=== PATIENT | female | born 1960 | race Caucasian/White ===

== ENCOUNTER 2016-08-22 14:48 | Emergency (ER) | payer MEDICARE ==
--- NOTE | 2016-08-22 15:24 | CT ---
EXAM DESCRIPTION: Head CLINICAL HISTORY: 55 years Female, CVA symptoms COMPARISON: None. TECHNIQUE: Volumetric noncontrasted CT of the head was performed. FINDINGS: The gloria matter and white matter are unremarkable on today's study. No abnormal extra-axial fluid. The ventricles are midline and unremarkable. Basilar cisterns are preserved. No mass, mass effect or shift. The orbits and globes are unremarkable. There is near complete opacification of the left maxillary sinus. Calvarium is intact. IMPRESSION: The intracranial structures are unremarkable no CT evidence of chronic or acute stroke. Chronic left maxillary sinusitis. Electronically signed by: Babak Landers MD 08/22/2016 3:23 PM [employer]
--- NOTE | 2016-08-22 15:28 | RAD ---
EXAM DESCRIPTION: Chest,2 Views CLINICAL HISTORY: 55 yearsFemale, chest pain, no cough COMPARISON: None. IMPRESSION: Mild cardiomegaly. No evidence of volume overload. There is no airspace consolidation, pleural effusion, or pneumothorax. No acute osseous abnormality. Electronically signed by: Babak Landers MD 08/22/2016 3:27 PM [employer]
--- NOTE | 2016-08-22 15:58 | ED.PDOC ---
History of Present Illness - General Chief Complaint: Cardiovascular Problem Stated Complaint: chest pain, confusion Time Seen by Provider: 08/22/16 15:42 Source: patient, RN notes reviewed, EMS Exam Limitations: no limitations - History of Present Illness Initial Comments: Ms.Helen Vega 55 y/o female with history of cad s/p one cardiac stent,pe/dvt, Sweets disease, lymphoma,chronic pain pain syndrome,cva, brought by ems with chest pain and confusion.She stated that she had intermittent chest pain stabbing lasting for few minutes but an hour ago her symptoms worsen she became diaphoretic,pain radiating to her jaw had 2 episodes of nausea/vomiting,became confused doesnt know where she was called up and he clled ems to shredder picker at her house.She stated that she had an mi in August 2015 in [place], [place] had one cardiac stent placed upon discharge passed out was diagnosed with pe and bilateral leg dvt and was placed on Xarelto and Plavix.She was also mechanically ventilated for 4 days.Took 4 NTG before coming here. Timing/Duration: other - 2 days Improving Factors: nothing Worsening Factors: nothing Associated Symptoms: chest pain, weakness - left side Allergies/Adverse Reactions: Allergies Aspirin Allergy (Verified 08/22/16 14:57) Codeine Allergy (Verified 08/22/16 15:11) Droperidol [From Inapsine] Allergy (Verified 08/22/16 15:11) Ketorolac Tromethamine [From Toradol] Allergy (Verified 08/22/16 15:11) Morphine Allergy (Verified 08/22/16 15:11) Home Medications: Ambulatory Orders ALPRAZolam [Xanax] 0.5 mg PO TID 08/22/16 Atorvastatin Calcium [Lipitor] 40 mg PO DAILY 08/22/16 Carvedilol 6.25 mg PO BID 08/22/16 Clopidogrel Bisulfate 75 mg PO DAILY 08/22/16 Cyclobenzaprine HCl 5 mg PO BID PRN 08/22/16 Fluoxetine HCl 20 mg PO DAILY 08/22/16 Levothyroxine Sodium [Synthroid] 112 mcg PO DAILY 08/22/16 Nitroglycerin [Nitrostat] 1 ea SL Q5MIN PRN 08/22/16 Oxycodone W/ Acetaminophen [Percocet 10-325 mg] 1 tab PO Q6H PRN 08/22/16 Pantoprazole Sodium 40 mg PO DAILY 08/22/16 Promethazine HCl 12.5 mg PO Q8H PRN 08/22/16 Rivaroxaban [Xarelto] 20 mg PO DAILY 08/22/16 Sucralfate 1 gm PO TID 08/22/16 Trazodone HCl 50 mg PO BEDTIME 08/22/16 Review of Systems - Review of Systems Constitutional: States: see HPI EENTM: States: no symptoms reported Respiratory: States: no symptoms reported Cardiology: States: no symptoms reported Gastrointestinal/Abdominal: States: no symptoms reported Genitourinary: States: no symptoms reported Musculoskeletal: States: other - chronic pain syndrome Skin: States: no symptoms reported Neurological: States: see HPI Endocrine: States: no symptoms reported Hematologic/Lymphatic: States: no symptoms reported Past Medical History (General) - Patient Medical History Hx Stroke: Yes Hx Cardiac Disorders: Yes - CAD Hx Thyroid Disease: Yes Hx Other PMH: Yes - lymphoma Hx Other - free text: Had 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 for 2 years in [place], [place] Surgical History: appendectomy, cholecystectomy, other - Hysterectomy,cardiac cath - Social History Hx Tobacco Use: No Hx Alcohol Use: No - Activities of Daily Living Patient Lives Alone: No - Grooming Ability: Independent Eating (Feeding) Ability: Independent Toileting Ability: Independent Family Medical History - Family History Sister Hx Family Stroke: Yes - mom Hx Cardiac Disease: Yes - parents Hx Family;Other: SWEETS Disease -sister Mother Family History: No Known Living Status: Still Living Hx Family Hypertension: Yes Hx Family Cancer: Yes - ovarian Physical Exam - Physical Exam General Appearance: Alert, Anxious, No apparent distress Eye Exam: bilateral normal Ears, Nose, Throat: hearing grossly normal, normal ENT inspection, normal pharynx Neck: non-tender, full range of motion, supple, normal inspection Respiratory: chest non-tender, lungs clear, normal breath sounds, no respiratory distress Cardiovascular/Chest: normal peripheral pulses, regular rate, rhythm, no edema, no gallop, no JVD, no murmur Peripheral Pulses: radial,right: 2+, radial,left: 2+ Gastrointestinal/Abdominal: normal bowel sounds, non tender, soft, no organomegaly, no pulsatile mass Back Exam: normal inspection, no CVA tenderness, no vertebral tenderness, CVA tenderness (R) Extremity: non-tender, normal inspection, no calf tenderness Neurologic: alert, normal mood/affect, oriented x 3, motor weakness - left side Skin Exam: normal color, warm/dry, cyanosis Lymphatic: no adenopathy Progress - Results/Orders Results/Orders: 08/22/16 16:01 Telemetry .ONCE Pulse Oximetry Assessment DAILY 08/22/16 16:06 URINE DRUG SCREEN, 7 ASSAY Stat URINALYSIS Stat Laboratory Results WBC 6.9 K/mm3 (4.8-10.8) 08/22/16 16:15 RBC 4.15 M/mm3 (4.20-5.40) L 08/22/16 16:15 Hgb 11.5 gm/dL (12.0-16.0) L 08/22/16 16:15 Hct 35.0 % (36.0-47.0) L 08/22/16 16:15 MCV 84.3 fl (81.0-99.0) 08/22/16 16:15 MCH 27.7 pg (27.0-31.0) 08/22/16 16:15 MCHC 32.9 g/dL (33.0-37.0) L 08/22/16 16:15 RDW 14.5 % (11.5-14.5) 08/22/16 16:15 Plt Count 296 K/mm3 (130-400) 08/22/16 16:15 MPV 6.9 fl (7.40-10.4) L 08/22/16 16:15 Absolute Neuts (auto) 3.50 K/uL (1.8-6.8) 08/22/16 16:15 Absolute Lymphs (auto) 2.30 K/uL (1.0-3.4) 08/22/16 16:15 Absolute Monos (auto) 0.90 K/uL (0.2-0.8) H 08/22/16 16:15 Absolute Eos (auto) 0.20 K/uL (0.0-0.4) 08/22/16 16:15 Absolute Basos (auto) 0.10 K/uL (0.0-0.1) 08/22/16 16:15 Neutrophils % 49.7 % (42.0-78.0) 08/22/16 16:15 Lymphocytes % 33.5 % (20.0-50.0) 08/22/16 16:15 Monocytes % 12.6 % (2.0-9.0) H 08/22/16 16:15 Eosinophils % 3.3 % (1.0-5.0) 08/22/16 16:15 Basophils % 0.9 % (0.0-2.0) 08/22/16 16:15 PT 11.5 SECONDS (9.4-12.5) 08/22/16 16:15 INR 1.020 08/22/16 16:15 PTT (SP) 32.6 SECONDS (25.1-36.5) 08/22/16 16:15 D-Dimer, Quantitative < 200 ng/mL (0-230) 08/22/16 16:15 Sodium 142 mmol/L (135-145) 08/22/16 16:15 Potassium 3.9 mmol/L (3.6-5.0) 08/22/16 16:15 Chloride 104 mmol/L (101-111) 08/22/16 16:15 Carbon Dioxide 32 mmol/L (21-31) H 08/22/16 16:15 Anion Gap 9.9 (12-18) L 08/22/16 16:15 BUN 11 mg/dL (7-18) 08/22/16 16:15 Creatinine 0.86 mg/dL (0.6-1.3) 08/22/16 16:15 BUN/Creatinine Ratio 12.8 (10-20) 08/22/16 16:15 Random Glucose 111 mg/dL (70-105) H 08/22/16 16:15 Serum Osmolality 283.2 mOsm/L (275-295) 08/22/16 16:15 Calcium 8.9 mg/dL (8.4-10.2) 08/22/16 16:15 Magnesium 1.9 mg/dL (1.8-2.5) 08/22/16 16:15 Creatine Kinase 55 IU/L (26-140) 08/22/16 16:15 CK-MB (CK-2) 0.8 ng/mL (0.0-4.4) 08/22/16 16:15 CK-MB (CK-2) % Not Reportable 08/22/16 16:15 Troponin I < 0.02 ng/mL (0.01-0.05) 08/22/16 16:15 B-Natriuretic Peptide 72.7 pg/ml (0-100) 08/22/16 16:15 Departure - Departure Clinical Impression: Chest pain Qualifiers: Chest pain type: unspecified Qualifier Code: (R07.9) Chest pain, unspecified Transient ischemic attack (TIA) Qualifiers: Transient cerebral ischemia type: unspecified Qualifier Code: (G45.9) Transient cerebral ischemic attack, unspecified Time of Disposition: 17:05 - D/W Neurologist -[facility] Disposition: Transfer to Hospital Condition: Fair Departure Forms: ED Discharge - Pt. Copy, Patient Portal Self Enrollment Home Medications: Ambulatory Orders ALPRAZolam [Xanax] 0.5 mg PO TID 08/22/16 Atorvastatin Calcium [Lipitor] 40 mg PO DAILY 08/22/16 Carvedilol 6.25 mg PO BID 08/22/16 Clopidogrel Bisulfate 75 mg PO DAILY 08/22/16 Cyclobenzaprine HCl 5 mg PO BID PRN 08/22/16 Fluoxetine HCl 20 mg PO DAILY 08/22/16 Levothyroxine Sodium [Synthroid] 112 mcg PO DAILY 08/22/16 Nitroglycerin [Nitrostat] 1 ea SL Q5MIN PRN 08/22/16 Oxycodone W/ Acetaminophen [Percocet 10-325 mg] 1 tab PO Q6H PRN 08/22/16 Pantoprazole Sodium 40 mg PO DAILY 08/22/16 Promethazine HCl 12.5 mg PO Q8H PRN 08/22/16 Rivaroxaban [Xarelto] 20 mg PO DAILY 08/22/16 Sucralfate 1 gm PO TID 08/22/16 Trazodone HCl 50 mg PO BEDTIME 08/22/16
[2016-08-22 18:01] VITALS: BP 141/83; TEMP 98.2; O2SAT 96
== END 2016-08-22 17:50 | disposition short-term general hospital (02) ==
LOC: ER 14:48
DX: G45.9 Transient cerebral ischemic attack, unspecified (principal); R07.9 Chest pain, unspecified; I25.10 Atherosclerotic heart disease of native coronary artery without angina pectoris; E07.9 Disorder of thyroid, unspecified; Z85.72 Personal history of non-Hodgkin lymphomas; Z88.6 Allergy status to analgesic agent; Z88.8 Allergy status to other drugs, medicaments and biological substances; Z79.899 Other long term (current) drug therapy; Z79.02 Long term (current) use of antithrombotics/antiplatelets

== ENCOUNTER → 2016-12-02 | Outpatient (CLI) | payer MEDICARE | END | disposition home or self-care (01) | LOC: GMAB 19:39 | PROVIDERS: ATTEND Family Medicine | DX: D64.9 Anemia, unspecified (principal) ==

== ENCOUNTER 2017-02-15 21:00 | Emergency (ER) | payer MEDICARE ==
--- NOTE | 2017-02-15 21:15 | ED.PDOC ---
History of Present Illness - General Chief Complaint: General Stated Complaint: altered mental status Time Seen by Provider: 02/15/17 21:08 Source: patient, RN notes reviewed, Vital Signs reviewed, family Additional Information: Pt brought in by due to complaints of occasional altered mental status. Pt reports occasional chest pain and nausea x 1 day as well. Currently no apparent distress noted. - History of Present Illness Timing/Duration: 24 hours Severity: moderate Improving Factors: nothing Worsening Factors: movement Associated Symptoms: nausea/vomiting, weakness Allergies/Adverse Reactions: Allergies Aspirin Allergy (Verified 02/15/17 21:29) Codeine Allergy (Verified 02/15/17 21:29) Droperidol [From Inapsine] Allergy (Verified 02/15/17 21:29) Ketorolac Tromethamine [From Toradol] Allergy (Verified 02/15/17 21:29) Morphine Allergy (Verified 02/15/17 21:29) Ondansetron [From Zofran] Allergy (Verified 02/15/17 21:29) Home Medications: Ambulatory Orders ALPRAZolam [Xanax] 0.5 mg PO TID PRN 08/22/16 Atorvastatin Calcium [Lipitor] 40 mg PO DAILY 08/22/16 Carvedilol 12.5 mg PO BID 08/22/16 Clopidogrel Bisulfate 75 mg PO DAILY 08/22/16 Cyclobenzaprine HCl 5 mg PO BID PRN 08/22/16 Fluoxetine HCl 20 mg PO DAILY 08/22/16 Levothyroxine Sodium [Synthroid] 112 mcg PO DAILY 08/22/16 Nitroglycerin [Nitrostat] 1 ea SL Q5MIN PRN 08/22/16 Oxycodone W/ Acetaminophen [Percocet 10-325 mg] 1 tab PO Q6H PRN 08/22/16 Pantoprazole Sodium 40 mg PO DAILY 08/22/16 Promethazine HCl 12.5 mg PO Q6HRS PRN 08/22/16 Rivaroxaban [Xarelto] 20 mg PO DAILY 08/22/16 Trazodone HCl 50 mg PO BEDTIME 08/22/16 Apixaban [Eliquis] 5 mg PO BID 02/15/17 Dicyclomine HCl 20 mg PO QID PRN 02/15/17 Dimenhydrinate 50 mg PO PRN 02/15/17 Ferrous Sulfate 325 mg PO DAILY 02/15/17 Ranitidine HCl 300 mg PO BID 02/15/17 Review of Systems - Review of Systems Constitutional: States: no symptoms reported EENTM: States: no symptoms reported Respiratory: States: no symptoms reported Cardiology: States: no symptoms reported Gastrointestinal/Abdominal: States: no symptoms reported Genitourinary: States: no symptoms reported Musculoskeletal: States: no symptoms reported Skin: States: no symptoms reported Neurological: States: see HPI, anxiety, depressed, emotional problems Endocrine: States: no symptoms reported Hematologic/Lymphatic: States: no symptoms reported Past Medical History (General) - Patient Medical History Hx Stroke: Yes Hx Asthma: Yes Hx of COPD: Yes Hx Cardiac Disorders: Yes - CAD Hx Congestive Heart Failure: No Hx Hypertension: Yes Hx Thyroid Disease: Yes Hx Diabetes: No Hx Gastroesophageal Reflux: Yes - Vaccination History Hx Influenza Vaccination: No Hx Pneumococcal Vaccination: No - Social History Hx Tobacco Use: No Hx Alcohol Use: No Family Medical History - Family History Mother Family History: No Known Living Status: Still Living Hx Family Hypertension: Yes Hx Family Cancer: Yes - ovarian Sister Hx Family Stroke: Yes - mom Hx Cardiac Disease: Yes - parents Hx Family;Other: SWEETS Disease -sister Physical Exam - Physical Exam General Appearance: Alert, Comfortable, No apparent distress, Obese Eye Exam: bilateral normal Ears, Nose, Throat: hearing grossly normal, normal ENT inspection Neck: full range of motion, supple Respiratory: no respiratory distress, no accessory muscle use Cardiovascular/Chest: normal peripheral pulses, regular rate, rhythm Gastrointestinal/Abdominal: non tender, soft Back Exam: normal inspection Extremity: normal range of motion, non-tender Neurologic: gmat tutor II-XII nml as tested, no motor/sensory deficits, alert, normal mood/affect, oriented x 3 Skin Exam: normal color Lymphatic: no adenopathy Progress - Progress Progress: 02/15/17 23:40 Labs obtained as well as EKG - all WNL. Pt requested phenergan for nausea. She states that Zofran causes an allergic reaction. Pt reported feeling tired/ groggy after Phenergan. Pt was stable for discharge home. I re-iterated that her medications are potentially playing a role in her reported occasional altered mental status. - Results/Orders Results/Orders: 02/15/17 21:15 EKG STAT Laboratory Results - last 24 hr 02/15/17 02/15/17 02/15/17 21:20 21:20 21:35 WBC RBC Hgb Hct MCV MCH MCHC RDW Plt Count MPV Absolute Neuts (auto) Absolute Lymphs (auto) Absolute Monos (auto) Absolute Eos (auto) Absolute Basos (auto) Neutrophils % Lymphocytes % Monocytes % Eosinophils % Basophils % Sodium Potassium Chloride Carbon Dioxide Anion Gap BUN Creatinine BUN/Creatinine Ratio Random Glucose Serum Osmolality Calcium Ferritin Total Bilirubin AST ALT Alkaline Phosphatase Creatine Kinase CK-MB (CK-2) CK-MB (CK-2) % Troponin I Serum Total Protein Albumin Globulin Albumin/Globulin Ratio TSH 3.08 Urine Color Yellow Urine Appearance Clear Urine pH 5.5 Ur Specific [place] 1.020 Urine Protein Negative Urine Glucose (UA) Negative Urine Ketones Negative Urine Blood Moderate H Urine Nitrite Negative Urine Bilirubin Negative Urine Urobilinogen 0.2 Ur Leukocyte Esterase Trace H Urine RBC 1-3 Urine WBC 1-3 Ur Epithelial Cells 1-3 Urine Bacteria Rare Urine Opiates Screen Positive H Urine Barbiturates Negative Ur Phencyclidine Scrn Negative U Amphetamin/Meth Scrn Positive H U Benzodiazepines Scrn Positive H U Cocaine Metab Screen Negative U Cannabinoids Screen Negative Ethyl Alcohol 02/15/17 02/15/17 02/15/17 21:35 21:35 21:35 WBC 8.5 RBC 4.01 L Hgb 11.8 L Hct 35.8 L MCV 89.3 MCH 29.4 MCHC 33.0 RDW 13.8 Plt Count 289 MPV 7.0 L Absolute Neuts (auto) 4.40 Absolute Lymphs (auto) 2.50 Absolute Monos (auto) 1.10 H Absolute Eos (auto) 0.30 Absolute Basos (auto) 0.10 Neutrophils % 51.7 Lymphocytes % 30.0 Monocytes % 13.4 H Eosinophils % 4.1 Basophils % 0.8 Sodium 139 Potassium 4.2 Chloride 103 Carbon Dioxide 25 Anion Gap 15.2 BUN 6 L Creatinine 0.70 BUN/Creatinine Ratio 8.6 L Random Glucose 109 H Serum Osmolality 275.7 Calcium 9.1 Ferritin Total Bilirubin 0.4 AST 109 H ALT 97 H Alkaline Phosphatase 139 H Creatine Kinase CK-MB (CK-2) CK-MB (CK-2) % Troponin I Serum Total Protein 7.0 Albumin 3.8 Globulin 3.2 Albumin/Globulin Ratio 1.2 TSH Urine Color Urine Appearance Urine pH Ur Specific [place] Urine Protein Urine Glucose (UA) Urine Ketones Urine Blood Urine Nitrite Urine Bilirubin Urine Urobilinogen Ur Leukocyte Esterase Urine RBC Urine WBC Ur Epithelial Cells Urine Bacteria Urine Opiates Screen Urine Barbiturates Ur Phencyclidine Scrn U Amphetamin/Meth Scrn U Benzodiazepines Scrn U Cocaine Metab Screen U Cannabinoids Screen Ethyl Alcohol < 5.40 02/15/17 02/15/17 21:35 21:35 WBC RBC Hgb Hct MCV MCH MCHC RDW Plt Count MPV Absolute Neuts (auto) Absolute Lymphs (auto) Absolute Monos (auto) Absolute Eos (auto) Absolute Basos (auto) Neutrophils % Lymphocytes % Monocytes % Eosinophils % Basophils % Sodium Potassium Chloride Carbon Dioxide Anion Gap BUN Creatinine BUN/Creatinine Ratio Random Glucose Serum Osmolality Calcium Ferritin 42.8 Total Bilirubin AST ALT Alkaline Phosphatase Creatine Kinase 78 CK-MB (CK-2) 1.2 CK-MB (CK-2) % Not Reportable Troponin I < 0.02 Serum Total Protein Albumin Globulin Albumin/Globulin Ratio TSH Urine Color Urine Appearance Urine pH Ur Specific [place] Urine Protein Urine Glucose (UA) Urine Ketones Urine Blood Urine Nitrite Urine Bilirubin Urine Urobilinogen Ur Leukocyte Esterase Urine RBC Urine WBC Ur Epithelial Cells Urine Bacteria Urine Opiates Screen Urine Barbiturates Ur Phencyclidine Scrn U Amphetamin/Meth Scrn U Benzodiazepines Scrn U Cocaine Metab Screen U Cannabinoids Screen Ethyl Alcohol - EKG/XRAY/CT EKG: Sinus - 83 bpm, QTc = 465 msec, nonspecific inverted T wave in III; no evidence of STEMI. Departure - Departure Clinical Impression: Mental status alteration Qualifiers: Altered mental status type: somnolence Qualified Code(s): R40.0 - Somnolence Time of Disposition: 22:38 Disposition: Discharge to Home or Self Care Condition: Fair Departure Forms: ED Discharge - Pt. Copy, Patient Portal Self Enrollment Instructions: Aging Gracefully: Reducing the Risks of Polypharmacy Referrals: Markus Ziegler MD [Primary Care Provider] - 1-5 Days Home Medications: Ambulatory Orders ALPRAZolam [Xanax] 0.5 mg PO TID PRN 08/22/16 Atorvastatin Calcium [Lipitor] 40 mg PO DAILY 08/22/16 Carvedilol 12.5 mg PO BID 08/22/16 Clopidogrel Bisulfate 75 mg PO DAILY 08/22/16 Cyclobenzaprine HCl 5 mg PO BID PRN 08/22/16 Fluoxetine HCl 20 mg PO DAILY 08/22/16 Levothyroxine Sodium [Synthroid] 112 mcg PO DAILY 08/22/16 Nitroglycerin [Nitrostat] 1 ea SL Q5MIN PRN 08/22/16 Oxycodone W/ Acetaminophen [Percocet 10-325 mg] 1 tab PO Q6H PRN 08/22/16 Pantoprazole Sodium 40 mg PO DAILY 08/22/16 Promethazine HCl 12.5 mg PO Q6HRS PRN 08/22/16 Rivaroxaban [Xarelto] 20 mg PO DAILY 08/22/16 Trazodone HCl 50 mg PO BEDTIME 08/22/16 Apixaban [Eliquis] 5 mg PO BID 02/15/17 Dicyclomine HCl 20 mg PO QID PRN 02/15/17 Dimenhydrinate 50 mg PO PRN 02/15/17 Ferrous Sulfate 325 mg PO DAILY 02/15/17 Ranitidine HCl 300 mg PO BID 02/15/17 Additional Instructions: Use medications with caution and consider decreasing use of medications that cause drowsiness such as: Trazodone, Phenergan, Percocet, Flexeril, and Xanax. Return to ER if condition worsens.
[2017-02-15 21:30] VITALS: BP 126/92; TEMP 99.1; O2SAT 94
[2017-02-15] MEDS ORDERED: PROMETHAZINE HCL 25 MG TAB PO ONE (21:35)
== END 2017-02-15 22:43 | disposition home or self-care (01) ==
LOC: ER 21:00
DX: R40.0 Somnolence (principal); R11.0 Nausea; I10 Essential (primary) hypertension; E07.9 Disorder of thyroid, unspecified; K21.9 Gastro-esophageal reflux disease without esophagitis; Z79.899 Other long term (current) drug therapy; J44.9 Chronic obstructive pulmonary disease, unspecified; I25.10 Atherosclerotic heart disease of native coronary artery without angina pectoris; Z88.6 Allergy status to analgesic agent; Z88.8 Allergy status to other drugs, medicaments and biological substances
CPT/HCPCS: 36415; 80053; 80307; 80320; 81001; 82550; 82553; 82728; 84443; 84484; 85025; 93005; Q0169

== ENCOUNTER 2017-10-01 14:47 | Emergency (ER) | payer MEDICARE ==
--- NOTE | 2017-10-01 15:20 | ED.PDOC ---
History of Present Illness - General Chief Complaint: GI Problem Stated Complaint: blood in stool,vomiting blood Time Seen by Provider: 10/01/17 14:56 Information Source: patient, RN notes reviewed, Vital Signs reviewed Additional Information: 56 YEAR OLD WHITE FEMALE PRESENTS WITH VOMITING COFFEE GROUND MATERIAL AND ALSO DARK RED STOOLS ONSET 2 DAYS SHE HAS HISTORY OF CAD SP STENTS ATRIAL FIB WITH HISTORY OF ABLATION PE SP GREEN FIELD FILTER CVA ( 2 MONTHS AGO ) GI BLEED SECONDARY TO XARALTO IN THE PAST SHE IS ON PLAVIX AND ELIQUIS DENIES SYNCOPY DIZZINESS VS APPEAR STABLE AT THIS TIME - History of Present Illness Abdominal Pain Onset Location: epigastric Pain Radiation: no radiation Timing/Duration: days Improving Factors: nothing Worsening Factors: nothing Associated Symptoms: heartburn, weakness Review of Systems - Review of Systems Constitutional: States: weakness EENTM: States: no symptoms reported Respiratory: States: no symptoms reported Cardiology: States: no symptoms reported Gastrointestinal/Abdominal: States: see HPI Genitourinary: States: no symptoms reported Musculoskeletal: States: no symptoms reported Skin: States: no symptoms reported Neurological: States: no symptoms reported Endocrine: States: no symptoms reported Hematologic/Lymphatic: States: no symptoms reported Past Medical History (General) - Patient Medical History Hx Seizures: No Hx Stroke: Yes Hx Dementia: No Hx Asthma: Yes Hx of COPD: Yes Hx Cardiac Disorders: Yes - CAD Hx Congestive Heart Failure: No Hx Pacemaker: No Hx Hypertension: Yes Hx Thyroid Disease: Yes Hx Diabetes: No Hx Gastroesophageal Reflux: Yes Hx Renal Disease: No Hx Cancer: No Hx of HIV: No Hx Hepatitis C: No Hx MRSA: No - Vaccination History Hx Tetanus, Diphtheria Vaccination: No Hx Influenza Vaccination: No Hx Pneumococcal Vaccination: No - Social History Hx Tobacco Use: No Hx Alcohol Use: No Hx Substance Use: No Hx Substance Use Treatment: No Hx Depression: No Hx Physical Abuse: No Hx Emotional Abuse: No Hx Suspected Abuse: No Family Medical History - Family History Mother Family History: No Known Living Status: Still Living Hx Family Hypertension: Yes Hx Family Cancer: Yes - ovarian Sister Hx Family Stroke: Yes - mom Hx Cardiac Disease: Yes - parents Hx Family;Other: SWEETS Disease -sister Physical Exam - Physical Exam General Appearance: Ill Appearing Eyes, Ears, Nose, Throat Exam: PERRL/EOMI, normal ENT inspection, TMs normal Neck: non-tender, full range of motion, supple Respiratory: chest non-tender, lungs clear, normal breath sounds Cardiovascular/Chest: normal peripheral pulses, regular rate, rhythm, no edema, no gallop Gastrointestinal/Abdominal: normal bowel sounds, non tender, soft, no organomegaly Extremity: normal range of motion, non-tender, normal inspection, no pedal edema 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, no motor/sensory deficits, alert, normal mood/affect, oriented x 3 Skin Exam: normal color Progress - Results/Orders Results/Orders: Laboratory Tests 10/01/17 10/01/17 10/01/17 16:17 16:17 16:17 WBC 18.7 H RBC 3.69 L Hgb 11.7 L Hct 34.5 L MCV 93.6 MCH 31.7 H MCHC 33.9 RDW 13.4 Plt Count 362 MPV 6.7 L Absolute Neuts (auto) 14.50 H Absolute Lymphs (auto) 2.60 Absolute Monos (auto) 1.30 H Absolute Eos (auto) 0.20 Absolute Basos (auto) 0.10 Neutrophils % 77.6 Lymphocytes % 14.1 L Monocytes % 7.0 Eosinophils % 0.8 L Basophils % 0.5 PTT (SP) 30.4 Sodium 139 Potassium 3.7 Chloride 106 Carbon Dioxide 26 Anion Gap 10.7 L BUN 11 Creatinine 0.79 BUN/Creatinine Ratio 13.9 Random Glucose 96 Serum Osmolality 276.8 Calcium 9.0 Total Bilirubin 0.8 AST 21 ALT 26 Alkaline Phosphatase 97 Serum Total Protein 7.5 Albumin 3.9 Globulin 3.6 H Albumin/Globulin Ratio 1.1 Stool Occult Blood 10/01/17 16:50 WBC RBC Hgb Hct MCV MCH MCHC RDW Plt Count MPV Absolute Neuts (auto) Absolute Lymphs (auto) Absolute Monos (auto) Absolute Eos (auto) Absolute Basos (auto) Neutrophils % Lymphocytes % Monocytes % Eosinophils % Basophils % PTT (SP) Sodium Potassium Chloride Carbon Dioxide Anion Gap BUN Creatinine BUN/Creatinine Ratio Random Glucose Serum Osmolality Calcium Total Bilirubin AST ALT Alkaline Phosphatase Serum Total Protein Albumin Globulin Albumin/Globulin Ratio Stool Occult Blood Positive Procedures - Central Line Right Internal jugular vein Central Line Lumen: triple Central Line Procedure Prep: betadine prep, sterile drapes applied, sterile dressing applied Anesthesia: Lidocaine cc's of anesthesia: 4 Complications: none Central Line Post Position: sutured, good blood return, position confirmed w/ CXR Departure - Departure Clinical Impression: GI bleeding Time of Disposition: 17:48 Disposition: Transfer to Hospital Departure Forms: ED Discharge - Pt. Copy, Patient Portal Self Enrollment Referrals: Anshul Kumar MD [Primary Care Provider] - 1-2 Weeks Home Medications: Ambulatory Orders ALPRAZolam [Xanax] 0.5 mg PO TID PRN 08/22/16 Atorvastatin Calcium [Lipitor] 40 mg PO DAILY 08/22/16 Carvedilol 12.5 mg PO BID 08/22/16 Clopidogrel Bisulfate 75 mg PO DAILY 08/22/16 Cyclobenzaprine HCl 5 mg PO BID PRN 08/22/16 Fluoxetine HCl 20 mg PO DAILY 08/22/16 Levothyroxine Sodium [Synthroid] 112 mcg PO DAILY 08/22/16 Oxycodone W/ Acetaminophen [Percocet 10-325 mg] 1 tab PO Q8H PRN 08/22/16 Pantoprazole Sodium 40 mg PO DAILY 08/22/16 Promethazine HCl 25 mg PO Q6HRS PRN 08/22/16 Trazodone HCl 50 mg PO BEDTIME 08/22/16 Apixaban [Eliquis] 5 mg PO BID 02/15/17 Dicyclomine HCl 20 mg PO QID PRN 02/15/17 Ranitidine HCl 300 mg PO BID 02/15/17 Acetaminophen [Tylenol 8 Hour] 650 mg PO PRN 10/01/17 Fluticasone/Salmeterol 250/50 [Advair Diskus] 1 puff INH DAILY 10/01/17 Comments: TRANSFER TO [facility] DISCUSSED WITH DR CHURCH HOSPITALIST WHO WILL ACCEPT THE PATIENT PATIENT EXAMINED SHE REMAINS STABLE INCLUDING HER LAB NO EVIDANCE OF MASSIVE GI BLOOD LOSS EXCEPT SINUS TACHYCARDIA SHE WILL BE MAINTAINED ON IV FLUIDS FOR NOW Transfer to Outside Facility - Transfer Information Accepting Facility: [facility] Reason for Transfer: specialized care not available
--- NOTE | 2017-10-01 16:35 | RAD ---
EXAM DESCRIPTION: Chest,1 View CLINICAL HISTORY: 56 years Female, post central line placement COMPARISON: Previous study August 22, 2016 TECHNIQUE: AP portable chest. FINDINGS: Heart size is prominent with mildly increased central pulmonary vascularity. Patchy infiltrate in the right upper lobe is seen with lesser infiltrate in the right lung base. Central line from the right internal jugular vein is present with tip in the region of the junction of the right atrium and inferior vena cava. This is situated approximately 7.6 cm below the expected location of the SVC-right atrial junction. No complicating pneumothorax or pleural effusion. Perihilar wedgelike atelectasis is seen bilaterally. The left lung is otherwise clear. No pulmonary mass or worrisome nodule. No pneumothorax or pleural effusion. Bones are unremarkable. Since previous study, infiltrate in the right lung and perihilar discoid atelectasis are new developments. IMPRESSION: Infiltrate in the right lung. Right central line tip position as noted above. Electronically signed by: Brayan Stinson MD 10/01/2017 4:33 PM CDT
[2017-10-01] MEDS ORDERED: PANTOPRAZOLE SODIUM IV 40 MG VIAL IV ONE (16:36)
[2017-10-01] MEDS ORDERED: PROMETHAZINE HCL INJ 25 MG in SODIUM CHLORIDE 0.9% 50ML 50 ML IVPB ONE (16:36)
[2017-10-01] MEDS ORDERED: fentaNYL CITRATE INJ 50 MCG/ML AMP IV ONE (16:36)
[2017-10-01] MEDS ORDERED: SODIUM CHLORIDE 0.9% 50ML 50 ML ONE (16:44)
[2017-10-01] MEDS ORDERED: PROMETHAZINE HCL INJ 25 MG/ML VIAL ONE (16:44)
[2017-10-01] MEDS ORDERED: SODIUM CHLORIDE 0.9% 1000ML 1,000 ML IVS ONE (17:42)
[2017-10-01 19:03] VITALS: BP 141/90; TEMP 99.4; O2SAT 98
== END 2017-10-01 19:03 | disposition short-term general hospital (02) ==
LOC: ER 14:47
DX: K92.2 Gastrointestinal hemorrhage, unspecified (principal); I25.10 Atherosclerotic heart disease of native coronary artery without angina pectoris; I10 Essential (primary) hypertension; K21.9 Gastro-esophageal reflux disease without esophagitis; Z86.73 Personal history of transient ischemic attack (TIA), and cerebral infarction without residual deficits; Z79.02 Long term (current) use of antithrombotics/antiplatelets; Z79.01 Long term (current) use of anticoagulants
CPT/HCPCS: 36415; 71045; 80053; 82270; 85025; 85730; 93005; A4216; J2550; J3010; J7030

== ENCOUNTER 2017-10-09 12:52 | Emergency (ER) | payer MEDICARE ==
[2017-10-09 13:11] VITALS: TEMP 96.4
[2017-10-09] MEDS ORDERED: ACTIVATED CHARCOAL PELLETS 25 GM BTTL PO ONE (13:17)
[2017-10-09] MEDS ORDERED: SORBITOL 70 % 30 ML UD ONE (13:27)
--- NOTE | 2017-10-09 13:30 | ED.PDOC ---
History of Present Illness - General Chief Complaint: Drug or Alcohol Abuse Stated Complaint: accidental overdose Time Seen by Provider: 10/09/17 13:14 Source: patient, other - friend called for help - History of Present Illness Initial Comments: patient comes in safer accidental overdose. Patient states she woke up this morning took all of her medications as per her usual pattern. Patient states she went back to bed woke up an hour later and had forgotten that she had taken the medication. She did feel like she was in increased pain from her fibromyalgia and so did double up on her Percocet, Xanax, and Phenergan. For those 3 medicines that she had a total of 3 pills each. Patient is very sleepy and tired but denies any other acute complaints. Patient states she was not trying to hurt herself she just forgot that she had taken the medication. Patient does not have any chest pain, shortness of breath, nausea currently, abdominal pain or altered LOC with the exception of the sleepiness. Patient was recently discharged less than a week ago after being transferred to [place] for upper GI bleed and being found to have pneumonia. Timing/Duration: 1-3 hours Severity: moderate Improving Factors: nothing Worsening Factors: nothing Associated Symptoms: denies symptoms Allergies/Adverse Reactions: Allergies Aspirin Allergy (Verified 02/15/17 21:29) Codeine Allergy (Verified 02/15/17 21:29) Droperidol [From Inapsine] Allergy (Verified 02/15/17 21:29) Ketorolac Tromethamine [From Toradol] Allergy (Verified 02/15/17 21:29) Lorazepam [From Ativan] Allergy (Verified 10/01/17 15:21) Morphine Allergy (Verified 02/15/17 21:29) Ondansetron [From Zofran] Allergy (Verified 02/15/17 21:29) Tramadol Allergy (Verified 10/01/17 15:21) Home Medications: Ambulatory Orders ALPRAZolam [Xanax] 0.5 mg PO TID PRN 08/22/16 Atorvastatin Calcium [Lipitor] 40 mg PO DAILY 08/22/16 Carvedilol 12.5 mg PO BID 08/22/16 Cyclobenzaprine HCl 5 mg PO BID PRN 08/22/16 Fluoxetine HCl 20 mg PO DAILY 08/22/16 Levothyroxine Sodium [Synthroid] 112 mcg PO DAILY 08/22/16 Oxycodone W/ Acetaminophen [Percocet 10-325 mg] 1 tab PO Q8H PRN 08/22/16 Promethazine HCl 25 mg PO Q6HRS PRN 08/22/16 Trazodone HCl 50 mg PO BEDTIME 08/22/16 Apixaban [Eliquis] 5 mg PO BID 02/15/17 Dicyclomine HCl 20 mg PO QID PRN 02/15/17 Acetaminophen [Tylenol 8 Hour] 650 mg PO PRN 10/01/17 Fluticasone/Salmeterol 250/50 [Advair Diskus] 1 puff INH DAILY 10/01/17 Pantoprazole Sodium 40 mg PO DAILY 10/09/17 Review of Systems - Review of Systems Constitutional: States: see HPI. Denies: chills, fever EENTM: States: no symptoms reported. Denies: blurred vision, ear pain, nose congestion, throat pain, throat swelling Respiratory: States: no symptoms reported. Denies: cough, short of breath, stridor, wheezing Cardiology: States: no symptoms reported. Denies: chest pain, edema, palpitations, syncope Gastrointestinal/Abdominal: States: no symptoms reported. Denies: abdominal pain, constipation, diarrhea, nausea, vomiting Genitourinary: States: no symptoms reported Musculoskeletal: States: no symptoms reported Skin: States: no symptoms reported Neurological: States: pre-existing deficit. 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 Surgical History: appendectomy, other - [place] filter - Vaccination History Hx Tetanus, Diphtheria Vaccination: No Hx Influenza Vaccination: No Hx Pneumococcal Vaccination: No - Social History Hx Tobacco Use: No Hx Alcohol Use: No Hx Substance Use: No Hx Substance Use Treatment: No Hx Depression: No Hx Physical Abuse: No Hx Emotional Abuse: No Hx Suspected Abuse: No - Female History Patient is a Female of Child Bearing Age (10 -59 yrs old): No Family Medical History - Family History Mother Family History: No Known Living Status: Still Living Hx Family Hypertension: Yes Hx Family Cancer: Yes - ovarian Sister Hx Family Stroke: Yes - mom Hx Cardiac Disease: Yes - parents Hx Family;Other: SWEETS Disease -sister Physical Exam - Physical Exam General Appearance: Lethargic Eye Exam: bilateral normal Ears, Nose, Throat: hearing grossly normal, normal ENT inspection, normal pharynx Neck: non-tender, full range of motion, supple, normal inspection Respiratory: chest non-tender, lungs clear, normal breath sounds, no respiratory distress, no accessory muscle use Cardiovascular/Chest: normal peripheral pulses, regular rate, rhythm, no edema, no gallop, no JVD, no murmur Peripheral Pulses: radial,right: 2+ Gastrointestinal/Abdominal: normal bowel sounds, non tender, soft, no organomegaly, no pulsatile mass Extremity: normal range of motion Neurologic: other - Normal motor 5/5 on the R with 4/5 on the LUE and LLE. Normal sensation CN II-XII intact Progress - Progress Progress: 10/09/17 14:03 10/09/17 13:17 IV Care:Saline Lock per Protoc QSHIFT 10/09/17 13:24 EKG Assessment ONCE 10/09/17 13:30 EKG STAT Laboratory Results WBC 9.0 K/mm3 (4.8-10.8) 10/09/17 13:33 RBC 3.57 M/mm3 (4.20-5.40) L 10/09/17 13:33 Hgb 11.3 gm/dL (12.0-16.0) L 10/09/17 13:33 Hct 33.1 % (36.0-47.0) L 10/09/17 13:33 MCV 92.7 fl (81.0-99.0) 10/09/17 13:33 MCH 31.6 pg (27.0-31.0) H 10/09/17 13:33 MCHC 34.0 g/dL (33.0-37.0) 10/09/17 13:33 RDW 12.8 % (11.5-14.5) 10/09/17 13:33 Plt Count 429 K/mm3 (130-400) H 10/09/17 13:33 MPV 6.5 fl (7.40-10.4) L 10/09/17 13:33 Absolute Neuts (auto) 5.40 K/uL (1.8-6.8) 10/09/17 13:33 Absolute Lymphs (auto) 2.50 K/uL (1.0-3.4) 10/09/17 13:33 Absolute Monos (auto) 0.80 K/uL (0.2-0.8) 10/09/17 13:33 Absolute Eos (auto) 0.20 K/uL (0.0-0.4) 10/09/17 13:33 Absolute Basos (auto) 0.10 K/uL (0.0-0.1) 10/09/17 13:33 Neutrophils % 59.7 % (42.0-78.0) 10/09/17 13:33 Lymphocytes % 27.9 % (Pa20.0-50.0) 10/09/17 13:33 Monocytes % 9.2 % (2.0-9.0) H 10/09/17 13:33 Eosinophils % 1.8 % (1.0-5.0) 10/09/17 13:33 Basophils % 1.4 % (0.0-2.0) 10/09/17 13:33 PT 16.1 SECONDS (9.4-12.5) H 10/09/17 13:33 INR 1.390 10/09/17 13:33 PTT (SP) 36.6 SECONDS (25.1-36.5) H 10/09/17 13:33 Sodium 139 mmol/L (135-145) 10/09/17 13:33 Potassium 3.9 mmol/L (3.6-5.0) 10/09/17 13:33 Chloride 107 mmol/L (101-111) 10/09/17 13:33 Carbon Dioxide 25 mmol/L (21-31) 10/09/17 13:33 Anion Gap 10.9 (12-18) L 10/09/17 13:33 BUN 6 mg/dL (7-18) L 10/09/17 13:33 Creatinine 0.58 mg/dL (0.6-1.3) L 10/09/17 13:33 BUN/Creatinine Ratio 10.3 (10-20) 10/09/17 13:33 Random Glucose 112 mg/dL (70-105) H 10/09/17 13:33 Serum Osmolality 275.9 mOsm/L (275-295) 10/09/17 13:33 Calcium 9.2 mg/dL (8.4-10.2) 10/09/17 13:33 Total Bilirubin 0.3 mg/dL (0.2-1.0) 10/09/17 13:33 AST 20 IU/L (10-42) 10/09/17 13:33 ALT 12 IU/L (10-60) 10/09/17 13:33 Alkaline Phosphatase 95 IU/L (42-121) 10/09/17 13:33 Troponin I 0.03 ng/mL (0.01-0.05) 10/09/17 13:33 Serum Total Protein 7.5 gm/dL (6.4-8.2) 10/09/17 13:33 Albumin 3.7 g/dl (3.2-5.5) 10/09/17 13:33 Globulin 3.8 gm/dL (2.3-3.5) H 10/09/17 13:33 Albumin/Globulin Ratio 1.0 (1.1-1.9) L 10/09/17 13:33 Salicylates < 4.0 mg/dL (0-29.9) 10/09/17 13:33 Acetaminophen 15.8 ug/mL (10.0-30.0) 10/09/17 13:33 Patient is sleepy but able to hold her airway and alert and oriented. Will monitor closely. Patient is a chronic pain patient so we will not reverse her with Narcan at this time but will if her sedation level increases instead of improving. Patient's medications were counted and she has more on each medication than she should have considering fill date. Patient has been non- compliant in the past and this is not the first time for accidental overdose. 10/09/17 16:09 Patient continues to be comfortable without evidence of distress. 10/09/17 17:42 10/09/17 13:24 EKG Assessment ONCE 10/09/17 13:30 EKG STAT Laboratory Results WBC 8.5 K/mm3 (4.8-10.8) 10/09/17 17:00 RBC 3.68 M/mm3 (4.20-5.40) L 10/09/17 17:00 Hgb 11.6 gm/dL (12.0-16.0) L 10/09/17 17:00 Hct 34.2 % (36.0-47.0) L 10/09/17 17:00 MCV 93.0 fl (81.0-99.0) 10/09/17 17:00 MCH 31.5 pg (27.0-31.0) H 10/09/17 17:00 MCHC 33.8 g/dL (33.0-37.0) 10/09/17 17:00 RDW 12.9 % (11.5-14.5) 10/09/17 17:00 Plt Count 445 K/mm3 (130-400) H 10/09/17 17:00 MPV 6.3 fl (7.40-10.4) L 10/09/17 17:00 Absolute Neuts (auto) 4.60 K/uL (1.8-6.8) 10/09/17 17:00 Absolute Lymphs (auto) 2.90 K/uL (1.0-3.4) 10/09/17 17:00 Absolute Monos (auto) 0.80 K/uL (0.2-0.8) 10/09/17 17:00 Absolute Eos (auto) 0.20 K/uL (0.0-0.4) 10/09/17 17:00 Absolute Basos (auto) 0.10 K/uL (0.0-0.1) 10/09/17 17:00 Neutrophils % 53.5 % (42.0-78.0) 10/09/17 17:00 Lymphocytes % 34.2 % (20.0-50.0) 10/09/17 17:00 Monocytes % 9.5 % (2.0-9.0) H 10/09/17 17:00 Eosinophils % 2.0 % (1.0-5.0) 10/09/17 17:00 Basophils % 0.8 % (0.0-2.0) 10/09/17 17:00 PT 16.1 SECONDS (9.4-12.5) H 10/09/17 13:33 INR 1.390 10/09/17 13:33 PTT (SP) 36.6 SECONDS (25.1-36.5) H 10/09/17 13:33 Sodium 141 mmol/L (135-145) 10/09/17 17:00 Potassium 3.7 mmol/L (3.6-5.0) 10/09/17 17:00 Chloride 105 mmol/L (101-111) 10/09/17 17:00 Carbon Dioxide 29 mmol/L (21-31) 10/09/17 17:00 Anion Gap 10.7 (12-18) L 10/09/17 17:00 BUN 6 mg/dL (7-18) L 10/09/17 17:00 Creatinine 0.66 mg/dL (0.6-1.3) 10/09/17 17:00 BUN/Creatinine Ratio 9.1 (10-20) L 10/09/17 17:00 Random Glucose 95 mg/dL (70-105) 10/09/17 17:00 Serum Osmolality 278.7 mOsm/L (275-295) 10/09/17 17:00 Calcium 9.2 mg/dL (8.4-10.2) 10/09/17 17:00 Total Bilirubin 0.2 mg/dL (0.2-1.0) D 10/09/17 17:00 AST 20 IU/L (10-42) 10/09/17 17:00 ALT 12 IU/L (10-60) 10/09/17 17:00 Alkaline Phosphatase 97 IU/L (42-121) 10/09/17 17:00 Troponin I 0.03 ng/mL (0.01-0.05) 10/09/17 13:33 Serum Total Protein 7.6 gm/dL (6.4-8.2) 10/09/17 17:00 Albumin 3.8 g/dl (3.2-5.5) 10/09/17 17:00 Globulin 3.8 gm/dL (2.3-3.5) H 10/09/17 17:00 Albumin/Globulin Ratio 1.0 (1.1-1.9) L 10/09/17 17:00 Salicylates < 4.0 mg/dL (0-29.9) 10/09/17 13:33 Acetaminophen < 10.0 ug/mL (10.0-30.0) L 10/09/17 17:00 she is doing great and is back to her baseline. So be discharged home to follow up with her PCP in 2-3 days to discuss her difficulty with compliance of medication Departure - Departure Clinical Impression: Accidental medication overdose Qualifiers: Encounter type: initial encounter Qualified Code(s): T50.901A - Poisoning by unspecified drugs, medicaments and biological substances, accidental ( unintentional), initial encounter Disposition: Discharge to Home or Self Care Condition: Good Departure Forms: ED Discharge - Pt. Copy, Patient Portal Self Enrollment Instructions: DI for Drug Overdose in Adults Diet: regular diet Activity: walking as tolerated Referrals: Anshul Kumar MD [Primary Care Provider] - 1-2 Weeks Home Medications: Ambulatory Orders ALPRAZolam [Xanax] 0.5 mg PO TID PRN 08/22/16 Atorvastatin Calcium [Lipitor] 40 mg PO DAILY 08/22/16 Carvedilol 12.5 mg PO BID 08/22/16 Cyclobenzaprine HCl 5 mg PO BID PRN 08/22/16 Fluoxetine HCl 20 mg PO DAILY 08/22/16 Levothyroxine Sodium [Synthroid] 112 mcg PO DAILY 08/22/16 Oxycodone W/ Acetaminophen [Percocet 10-325 mg] 1 tab PO Q8H PRN 08/22/16 Promethazine HCl 25 mg PO Q6HRS PRN 08/22/16 Trazodone HCl 50 mg PO BEDTIME 08/22/16 Apixaban [Eliquis] 5 mg PO BID 02/15/17 Dicyclomine HCl 20 mg PO QID PRN 02/15/17 Acetaminophen [Tylenol 8 Hour] 650 mg PO PRN 10/01/17 Fluticasone/Salmeterol 250/50 [Advair Diskus] 1 puff INH DAILY 10/01/17 Pantoprazole Sodium 40 mg PO DAILY 10/09/17 Additional Instructions: follow up with PCP in 2 to 3 days
[2017-10-09 17:54] VITALS: BP 122/91; O2SAT 95
== END 2017-10-09 17:54 | disposition home or self-care (01) ==
LOC: ER 12:52
DX: T42.4X1A Poisoning by benzodiazepines, accidental (unintentional), initial encounter (principal); T42.6X1A Poisoning by other antiepileptic and sedative-hypnotic drugs, accidental (unintentional), initial encounter; T39.1X1A Poisoning by 4-Aminophenol derivatives, accidental (unintentional), initial encounter; Y92.009 Unspecified place in unspecified non-institutional (private) residence as the place of occurrence of the external cause; J44.9 Chronic obstructive pulmonary disease, unspecified; I48.91 Unspecified atrial fibrillation; I25.10 Atherosclerotic heart disease of native coronary artery without angina pectoris; I10 Essential (primary) hypertension; E07.9 Disorder of thyroid, unspecified; Z79.899 Other long term (current) drug therapy; Z98.61 Coronary angioplasty status; Z86.718 Personal history of other venous thrombosis and embolism; Z86.711 Personal history of pulmonary embolism; Z79.01 Long term (current) use of anticoagulants

== ENCOUNTER → 2018-01-02 | Outpatient (CLI) | payer MEDICARE ==
--- NOTE | 2018-01-02 12:33 | MRI ---
EXAM DESCRIPTION: Brain w/oContrast CLINICAL HISTORY: REPEATED FALLS, very unsteady, history of multiple strokes COMPARISON: None available TECHNIQUE: Non contrast MRI of the brain is performed according to our usual protocol including multiplanar multi sequence technique. FINDINGS: Sagittal T1 images show intact corpus callosum. Normal pituitary gland with normal T1 appearance of the deanna and medulla and upper cervical cord. Normal signal intensity within the clivus and calvarium. Axial T2 fat sat images reveal preservation of intracranial vascular flow voids. Normal gloria matter and white matter T2 signal intensity. Normal ventricles with normal gyral and sulcal fold pattern. No cerebellar atrophy or infarct. Normal appearance of internal auditory canals. The globes appear intact and symmetrical. High signal intensity mucosal thickening in the left maxillary sinus is noted with inhomogeneous internal content suggesting chronic sinusitis, possibly fungal infection. Correlate with other studies. No abnormal fluid signal in the region of the tympanic cavities or mastoid air cells. Axial flair images show numerous punctate foci of increased signal intensity in the periventricular white matter, deep central white matter and subcortical white matter of both cerebral hemispheres. Findings are consistent with chronic microvascular ischemic changes related to aging, diabetes or hypertension. Sequelae of migraine headaches can have a similar appearance. The pattern is not suggestive of other demyelinating process. Diffusion weighted images are negative for focal intense increased signal intensity in the brain parenchyma to suggest restricted diffusion. ADC mapping is negative. Axial T1 images show normal gloria-white matter differentiation. No high signal intensity hemorrhagic lesion of the brain parenchyma. No subdural hematoma. Coronal susceptibility weighted images show minimal basal ganglial calcification, otherwise negative for focal signal loss to suggest abnormal brain parenchymal calcification or hemosiderin deposition. IMPRESSION: No acute intracranial pathologic process. Scattered punctate T-2/flair hyperintensities in the cerebral white matter consistent with chronic microvascular ischemic changes. Chronic appearing left maxillary sinus inflammatory disease. Electronically signed by: Brayan Stinson MD 01/02/2018 12:32 PM CDT
== END ==
LOC: MRI 10:40
PROVIDERS: ATTEND General Practice
DX: R29.6 Repeated falls (principal); J32.9 Chronic sinusitis, unspecified

== ENCOUNTER 2018-04-04 15:23 | Emergency (ER) | payer MEDICARE ==
[2018-04-04] MEDS ORDERED: SODIUM CHLORIDE 0.9% 1000ML 1,000 ML IVS ONE ×3 (15:59→21:24)
--- NOTE | 2018-04-04 17:29 | ED.PDOC ---
History of Present Illness - General Chief Complaint: General Stated Complaint: Weakness, N/V, low BP Time Seen by Provider: 04/04/18 15:29 Source: Vital Signs reviewed, family Exam Limitations: clinical condition - History of Present Illness Initial Comments: Her spouse reports that she became ill 3 days ago with vomiting & got clearly worse today. He says she has been confused & can't walk without falling. He also says that she poured his & her meds together & he thinks she may have taken some of both. Timing/Duration: constant, getting worse Severity: severe Improving Factors: nothing Worsening Factors: nothing Associated Symptoms: cough, fever/chills, nausea/vomiting, weakness, other - myalgias Allergies/Adverse Reactions: Allergies Aspirin Allergy (Verified 02/15/17 21:29) Codeine Allergy (Verified 02/15/17 21:29) Droperidol [From Inapsine] Allergy (Verified 02/15/17 21:29) Ketorolac Tromethamine [From Toradol] Allergy (Verified 02/15/17 21:29) Lorazepam [From Ativan] Allergy (Verified 10/01/17 15:21) Morphine Allergy (Verified 02/15/17 21:29) Ondansetron [From Zofran] Allergy (Verified 02/15/17 21:29) Tramadol Allergy (Verified 10/01/17 15:21) Home Medications: Ambulatory Orders ALPRAZolam [Xanax] 0.5 mg PO TID PRN 08/22/16 Atorvastatin Calcium [Lipitor] 40 mg PO DAILY 08/22/16 Carvedilol 12.5 mg PO BID 08/22/16 Cyclobenzaprine HCl 5 mg PO TID PRN 08/22/16 Levothyroxine Sodium [Synthroid] 112 mcg PO DAILY 08/22/16 Oxycodone W/ Acetaminophen [Percocet 10-325 mg] 1 tab PO Q8H PRN 08/22/16 Promethazine HCl 25 mg PO BID PRN 08/22/16 Trazodone HCl 50 mg PO BEDTIME 08/22/16 Apixaban [Eliquis] 5 mg PO BID 02/15/17 Dicyclomine HCl 20 mg PO QID PRN 02/15/17 Fluticasone/Salmeterol 250/50 [Advair Diskus] 1 puff INH DAILY 10/01/17 Pantoprazole Sodium 40 mg PO BID 10/09/17 Gabapentin [Gabapentin] 100 mg PO BID 04/04/18 Lisinopril & Hydrochlorothiazi [Lisinopril/Hctz 10-12.5 mg] 1 tab PO DAILY 04/04 Nitroglycerin 0.4 mg SL [id number] PRN 04/04/18 Review of Systems - Review of Systems Constitutional: States: see HPI, fever, weakness EENTM: States: no symptoms reported Respiratory: States: cough. Denies: short of breath Cardiology: States: see HPI. Denies: edema, syncope Gastrointestinal/Abdominal: States: see HPI, abdominal pain, nausea, vomiting. Denies: diarrhea Genitourinary: States: no symptoms reported Musculoskeletal: States: see HPI, back pain, muscle pain Skin: States: rash Neurological: States: see HPI, weakness Endocrine: States: no symptoms reported, see HPI Hematologic/Lymphatic: States: no symptoms reported, other - takes Eliquis for DVT; h/o GI bleed on Xarelto Unable to Obtain Due To: clinical condition Past Medical History (General) - Patient Medical History Hx Seizures: No Hx Stroke: Yes - TIA 11/2016; had a CVA - maybe 2010 Hx Dementia: No Hx Asthma: Yes Hx of COPD: Yes Hx Cardiac Disorders: Yes - A fib; cardiac ablation 2016 Hx Congestive Heart Failure: No Hx Pacemaker: No Hx Hypertension: Yes Hx Thyroid Disease: Yes Hx Diabetes: No Hx Gastroesophageal Reflux: Yes Hx Renal Disease: No Hx Cancer: No Hx of HIV: No Hx Hepatitis C: No Hx MRSA: No - Vaccination History Hx Tetanus, Diphtheria Vaccination: No Hx Influenza Vaccination: Yes - 2016 Hx Pneumococcal Vaccination: Yes - 2017 - Social History Hx Tobacco Use: No Hx Alcohol Use: No Hx Substance Use: No Hx Substance Use Treatment: No Hx Depression: No Hx Physical Abuse: No Hx Emotional Abuse: No Hx Suspected Abuse: No Family Medical History - Family History Mother Family History: No Known Living Status: Still Living Hx Family Hypertension: Yes Hx Family Cancer: Yes - ovarian Sister Hx Family Stroke: Yes - mom Hx Cardiac Disease: Yes - parents Hx Family;Other: SWEETS Disease -sister Physical Exam - Physical Exam General Appearance: Comfortable, No apparent distress, Lethargic Eye Exam: bilateral normal Ears, Nose, Throat: hearing grossly normal, other - moist mucosa Neck: full range of motion, supple, normal inspection Respiratory: lungs clear, normal breath sounds, no respiratory distress, no accessory muscle use Cardiovascular/Chest: regular rate, rhythm, no edema, no gallop, no JVD, no murmur Peripheral Pulses: radial,right: 0, radial,left: 0 Gastrointestinal/Abdominal: soft, no organomegaly, no pulsatile mass, tenderness - mild, diffuse tenderness Back Exam: normal inspection Extremity: normal range of motion, non-tender, normal inspection, normal capillary refill Neurologic: motor weakness - responds to voice; A/O x 2 (date); generalized weakness Skin Exam: normal color, warm/dry Progress - Progress Progress: 04/04/18 17:28 Staff has been unable to start an IV so far & she declines a central line at this point. 04/04/18 19:05 113/58. A/O x 3. Occasional cough. Myalgias. 04/04/18 19:13 More hx from her now. Recently returned from a trip. Started feeling bad several days ago with a cough. Took a few days of Cipro that she had on hand. Overall she thought she was getting better until today. Now with left hip & lower back pain. She says she thinks she fell against the wall. Approx 500 ml dark urine output. 04/04/18 20:24 68/38; HR 91. She says she feels better. Her BPs had been in the 120s earlier. She doesn't want to be transferred. 04/04/18 21:25 80/48. After her 1st liter of IVF her [place] was emptied of 800 ml. Clinically she does not appear ill at all. She has several confounding variables that may be clouding the picture. Since her spouse is convinced she took some of his metoprolol, I will give her an empiric dose of calcium & observe for effect. She had been threatening to leave [place] if we were going to insist on transferring her. 04/04/18 22:52 SBP 108 after 3rd liter of IVF & an infusion of calcium gluconate. She is making dilute urine. She has consented to transfer. 04/04/18 23:09 Differential = sepsis (pulmonary/pneumonia); beta jose overdose; opiate overdose; benzodiazepine overdose; Sweet's syndrome - Results/Orders Results/Orders: WBC 17 LA 2.2 then 1.0 UA WNL Cr 1.44 CK 511 - EKG/XRAY/CT EKG: Sinus - HR 82; nml axis, ST-T; right ventricular conduction delay; prolonged QT, no ST T wave changes XRAY: chest - atelectasis vs. infiltrate MICHELLE - Consult/PCP Time Called: 22:56 Consult Reason/Comments: D/W hospitalist at [facility] Departure - Departure Clinical Impression: Sepsis associated hypotension Fever Qualifiers: Fever type: unspecified Qualified Code(s): R50.9 - Fever, unspecified Mental status alteration Qualifiers: Altered mental status type: disorientation Qualified Code(s): R41.0 - Disorientation, unspecified Time of Disposition: 23:08 Disposition: Transfer to Hospital Condition: Serious Home Medications: Ambulatory Orders ALPRAZolam [Xanax] 0.5 mg PO TID PRN 08/22/16 Atorvastatin Calcium [Lipitor] 40 mg PO DAILY 08/22/16 Carvedilol 12.5 mg PO BID 08/22/16 Cyclobenzaprine HCl 5 mg PO TID PRN 08/22/16 Levothyroxine Sodium [Synthroid] 112 mcg PO DAILY 08/22/16 Oxycodone W/ Acetaminophen [Percocet 10-325 mg] 1 tab PO Q8H PRN 08/22/16 Promethazine HCl 25 mg PO BID PRN 08/22/16 Trazodone HCl 50 mg PO BEDTIME 08/22/16 Apixaban [Eliquis] 5 mg PO BID 02/15/17 Dicyclomine HCl 20 mg PO QID PRN 02/15/17 Fluticasone/Salmeterol 250/50 [Advair Diskus] 1 puff INH DAILY 10/01/17 Pantoprazole Sodium 40 mg PO BID 10/09/17 Gabapentin [Gabapentin] 100 mg PO BID 04/04/18 Lisinopril & Hydrochlorothiazi [Lisinopril/Hctz 10-12.5 mg] 1 tab PO DAILY 04/04 Nitroglycerin 0.4 mg SL [id number] PRN 04/04/18 Critical Care Note - Critical Care Note Total Time (mins): 60
--- NOTE | 2018-04-04 18:51 | RAD ---
EXAM DESCRIPTION: AP view of the chest CLINICAL HISTORY:57 years Female, fever Comparison: October 01, 2017 FINDINGS: Right IJ central line has been removed. Subsegmental atelectasis in the right midlung zone. Ill-defined opacity in the left upper lobe. There are no pleural abnormalities. The cardiac silhouette is at the upper limits of normal for size but similar to prior study. IMPRESSION: Ill-defined opacity in the left upper lobe possibly representing atelectasis or pneumonia. Subsegmental atelectasis in the right midlung zone. Electronically signed by: Lorenzo Mcfarlane DO 04/04/2018 6:50 PM CDT
[2018-04-04] MEDS ORDERED: PIPERACILLIN/TAZOBACTAM 3.375 GM in SODIUM CHLORIDE 0.9% 100ML 100 ML IVPB ONE (19:04)
[2018-04-04] MEDS ORDERED: ONDANSETRON INJ 4 MG/2 ML VIAL IV ONE (19:11)
[2018-04-04] MEDS ORDERED: MORPHINE SULFATE INJ 10 MG/ML VIAL IV ONE (19:11)
[2018-04-04] MEDS ORDERED: SODIUM CHLORIDE 0.9% 100ML 100 ML IVPB ONE (19:15)
[2018-04-04] MEDS ORDERED: PIPERACILLIN/TAZOBACTAM 3.375 GM VIAL IVPB ONE (19:15)
[2018-04-04] MEDS ORDERED: ACETAMINOPHEN 325 MG TAB PO ONE (19:26)
[2018-04-04] MEDS ORDERED: IBUPROFEN 200 MG TAB PO ONE (19:27)
--- NOTE | 2018-04-04 20:15 | RAD ---
EXAM DESCRIPTION: Hip,Left 2 Views CLINICAL HISTORY: 57 years Female, fall COMPARISON: None. FINDINGS: No fracture or dislocation. Soft tissues are unremarkable. IMPRESSION: No acute abnormality. Electronically signed by: Lorenzo Mcfarlane DO 04/04/2018 8:14 PM CDT
--- NOTE | 2018-04-04 20:16 | RAD ---
EXAM DESCRIPTION: Lumbar Spine 3 Views CLINICAL HISTORY: 57 years Female, fall COMPARISON: None. FINDINGS: No fracture or dislocation. Mild facet arthropathy lower lumbar spine. Soft tissues are unremarkable. IMPRESSION: No acute abnormality. Electronically signed by: Lorenzo Mcfarlane DO 04/04/2018 8:14 PM CDT
[2018-04-04] MEDS ORDERED: SODIUM CHLORIDE 0.9% 1000ML 1,000 ML ONE (20:22)
[2018-04-04] MEDS ORDERED: CALCIUM GLUCONATE INJ 1 GM in SODIUM CHLORIDE 0.9% 50ML 50 ML IVPB ONE (21:24)
[2018-04-04] MEDS ORDERED: CALCIUM GLUCONATE INJ 1 GM/10 ML VIAL ONE (21:29)
[2018-04-04] MEDS ORDERED: SODIUM CHLORIDE 0.9% 50ML 50 ML ONE (21:29)
[2018-04-04 23:04] VITALS: BP 90/48; TEMP 99.4; O2SAT 95
== END 2018-04-04 23:20 | disposition short-term general hospital (02) ==
LOC: ER 15:23
DX: A41.9 Sepsis, unspecified organism (principal); I95.89 Other hypotension; R41.0 Disorientation, unspecified; J44.9 Chronic obstructive pulmonary disease, unspecified; I48.91 Unspecified atrial fibrillation; K21.9 Gastro-esophageal reflux disease without esophagitis; E07.9 Disorder of thyroid, unspecified; I10 Essential (primary) hypertension; Z86.73 Personal history of transient ischemic attack (TIA), and cerebral infarction without residual deficits; Z79.899 Other long term (current) drug therapy; Z88.6 Allergy status to analgesic agent; Z88.5 Allergy status to narcotic agent; Z88.8 Allergy status to other drugs, medicaments and biological substances
CPT/HCPCS: 36415; 71045; 72100; 73502; 80053; 80307; 80320; 80329; 81001; 82550; 82553; 83605; 83690; 84443; 84484; 85007; 85025; 87040; 87070; 87502; 93005; A4216; J2543; J7030; J7050

== ENCOUNTER 2018-04-09 15:07 | Emergency (ER) | payer MEDICARE ==
[2018-04-09] MEDS: ASPIRIN TABLET 325 MG TAB PO ONE ×2 (16:07→17:02)
[2018-04-09] MEDS: ONDANSETRON INJ 4 MG/2 ML VIAL IV ONE ×2 (16:07→17:02)
--- NOTE | 2018-04-09 16:07 | ED.PDOC ---
History of Present Illness - General Chief Complaint: Chest Pain/WA Stated Complaint: Chest discomfort Time Seen by Provider: 04/09/18 16:00 Source: patient, family Exam Limitations: other - POOR HISTORIAN - History of Present Illness Initial Comments: THIS PATIENT WAS RECENTLY DISCHARGED FROM THE HOSPITAL IN [place]. SHE HAD AN APPOINTMENT AT THE TRANSITIONAL CLINIC. EVIDENTLY AND ACCORDING TO THE PATIENT, SHE CALLED THE TRANSITIONAL CLINIC AND WAS TOLD TO GO TO [place] BECAUSE SHE NEEDED TO BE ADMITTED TO THE HOSPITAL. SHE VOICES THAT HER HB WAS 7.7 AND WAS GIVEN IRON. SHE HAS AN APPOINTMENT WITH DR. DEUTSCH FOR AN ENDOSCOPY. SHE NOW C/O CHEST AND ABDOMINAL PAIN. Timing/Duration: 1 week Severity/Quality: mild Location: substernal Chest Pain Radiation: epigastric Activities at Onset: none Prior Chest Pain/Cardiac Workup: no prior chest pain Improving Factors: nothing Worsening Factors: nothing Nitro Today/Relief: no nitro taken today Associated Symptoms: abdominal pain Allergies/Adverse Reactions: Allergies Aspirin Allergy (Verified 02/15/17 21:29) Codeine Allergy (Verified 02/15/17 21:29) Droperidol [From Inapsine] Allergy (Verified 02/15/17 21:29) Ketorolac Tromethamine [From Toradol] Allergy (Verified 02/15/17 21:29) Lorazepam [From Ativan] Allergy (Verified 10/01/17 15:21) Morphine Allergy (Verified 02/15/17 21:29) Ondansetron [From Zofran] Allergy (Verified 02/15/17 21:29) Tramadol Allergy (Verified 10/01/17 15:21) Home Medications: Ambulatory Orders ALPRAZolam [Xanax] 0.5 mg PO TID PRN 08/22/16 Atorvastatin Calcium [Lipitor] 40 mg PO DAILY 08/22/16 Carvedilol 12.5 mg PO BID 08/22/16 Cyclobenzaprine HCl 5 mg PO TID PRN 08/22/16 Levothyroxine Sodium [Synthroid] 112 mcg PO DAILY 08/22/16 Oxycodone W/ Acetaminophen [Percocet 10-325 mg] 1 tab PO Q8H PRN 08/22/16 Promethazine HCl 25 mg PO BID PRN 08/22/16 Trazodone HCl 50 mg PO BEDTIME 08/22/16 Apixaban [Eliquis] 5 mg PO BID 02/15/17 Dicyclomine HCl 20 mg PO QID PRN 02/15/17 Fluticasone/Salmeterol 250/50 [Advair Diskus] 1 puff INH DAILY 10/01/17 Pantoprazole Sodium 40 mg PO BID 10/09/17 Gabapentin [Gabapentin] 100 mg PO BID 04/04/18 Lisinopril & Hydrochlorothiazi [Lisinopril/Hctz 10-12.5 mg] 1 tab PO DAILY 04/04 Nitroglycerin 0.4 mg SL [id number] PRN 04/04/18 Review of Systems - Review of Systems Constitutional: States: no symptoms reported EENTM: States: no symptoms reported Respiratory: States: no symptoms reported Cardiology: States: chest pain Gastrointestinal/Abdominal: States: no symptoms reported, abdominal pain Genitourinary: States: no symptoms reported Musculoskeletal: States: no symptoms reported Skin: States: no symptoms reported Neurological: States: no symptoms reported Endocrine: States: no symptoms reported Hematologic/Lymphatic: States: no symptoms reported Past Medical History (General) - Patient Medical History Hx Seizures: No Hx Stroke: Yes - TIA 11/2016; had a CVA - maybe 2010 Hx Dementia: No Hx Asthma: Yes Hx of COPD: Yes Hx Cardiac Disorders: Yes - A fib; cardiac ablation 2016; cardiac stent Hx Congestive Heart Failure: No Hx Pacemaker: No Hx Hypertension: Yes Hx Thyroid Disease: Yes Hx Diabetes: No Hx Gastroesophageal Reflux: Yes Hx Renal Disease: No Hx Cancer: No Hx of HIV: No Hx Hepatitis C: No Hx MRSA: No - Vaccination History Hx Tetanus, Diphtheria Vaccination: No Hx Influenza Vaccination: Yes - 2017 Hx Pneumococcal Vaccination: Yes - 2016 - Social History Hx Tobacco Use: No Hx Alcohol Use: No Hx Substance Use: No Hx Substance Use Treatment: No Hx Depression: No Hx Physical Abuse: No Hx Emotional Abuse: No Hx Suspected Abuse: No Family Medical History - Family History Mother Family History: No Known Living Status: Still Living Hx Family Hypertension: Yes Hx Family Cancer: Yes - ovarian Sister Hx Family Stroke: Yes - mom Hx Cardiac Disease: Yes - parents Hx Family;Other: SWEETS Disease -sister Physical Exam - Physical Exam General Appearance: Alert, No apparent distress, Well Developed, Well Groomed, Well Hydrated Eyes, Ears, Nose, Throat Exam: PERRL/EOMI, normal ENT inspection Neck: non-tender, full range of motion, supple, normal inspection Respiratory: chest non-tender, lungs clear, normal breath sounds, no respiratory distress, no accessory muscle use Cardiovascular/Chest: normal peripheral pulses, regular rate, rhythm, no edema, no gallop, no JVD Peripheral Pulses: radial,right: 2+, radial,left: 2+ Gastrointestinal/Abdominal: normal bowel sounds, tenderness - TO THE EPIGASTRIUM AND RLQ Rectal Exam: deferred Extremity: normal range of motion Neurologic: no motor/sensory deficits, alert, oriented x 3 Progress - Results/Orders Results/Orders: EKG: HR OF 100, HI INTERVAL OF 138, QRS OF 72, QTC OF 495, AXES OF -19 DEGREES. IMPRESSION SINUS RHYTHM, NO ACUTE INJURY PATTERN 04/09/18 15:31 Telemetry .ONCE EKG Stat Pulse Ox Stat Laboratory Results - last 24 hr 04/09/18 04/09/18 15:18 16:01 WBC 9.0 RBC 3.50 L Hgb 9.8 L Hct 30.3 L MCV 86.7 MCH 28.0 MCHC 32.2 L RDW 18.1 H Plt Count 505 H MPV 6.8 L Absolute Neuts (auto) 5.80 Absolute Lymphs (auto) 1.90 Absolute Monos (auto) 1.00 H Absolute Eos (auto) 0.30 Absolute Basos (auto) 0.10 Neutrophils % 64.9 Lymphocytes % 21.1 Monocytes % 10.6 H Eosinophils % 2.8 Basophils % 0.6 PT 11.0 H INR 1.10 PTT (SP) 30.5 Sodium 139 Potassium 3.8 Chloride 103 Carbon Dioxide 27 Anion Gap 12.8 BUN 7 Creatinine 0.54 L BUN/Creatinine Ratio 13.0 Random Glucose 103 Serum Osmolality 275.8 Calcium 9.2 Magnesium 2.0 Creatine Kinase 102 CK-MB (CK-2) 1.7 CK-MB (CK-2) % Not Reportable Troponin I < 0.02 B-Natriuretic Peptide 19.7 Lipase 27 D CHEST X RAY W/O ACUTE PROCESS. Departure - Departure Clinical Impression: Gastritis Qualifiers: Gastritis type: unspecified gastritis Chronicity: acute Gastritis bleeding: with bleeding Qualified Code(s): K29.01 - Acute gastritis with bleeding Anemia Qualifiers: Anemia type: iron deficiency Iron deficiency anemia type: chronic blood loss Qualified Code(s): D50.0 - Iron deficiency anemia secondary to blood loss ( chronic) Time of Disposition: 16:53 Disposition: Discharge to Home or Self Care Condition: Good Departure Forms: ED Discharge - Pt. Copy, Patient Portal Self Enrollment Instructions: DI for Chest Pain Referrals: Anshul Kumar MD [Primary Care Provider] - 1-2 Weeks Home Medications: Ambulatory Orders ALPRAZolam [Xanax] 0.5 mg PO TID PRN 08/22/16 Atorvastatin Calcium [Lipitor] 40 mg PO DAILY 08/22/16 Carvedilol 12.5 mg PO BID 08/22/16 Cyclobenzaprine HCl 5 mg PO TID PRN 08/22/16 Levothyroxine Sodium [Synthroid] 112 mcg PO DAILY 08/22/16 Oxycodone W/ Acetaminophen [Percocet 10-325 mg] 1 tab PO Q8H PRN 08/22/16 Promethazine HCl 25 mg PO BID PRN 08/22/16 Trazodone HCl 50 mg PO BEDTIME 08/22/16 Apixaban [Eliquis] 5 mg PO BID 02/15/17 Dicyclomine HCl 20 mg PO QID PRN 02/15/17 Fluticasone/Salmeterol 250/50 [Advair Diskus] 1 puff INH DAILY 10/01/17 Pantoprazole Sodium 40 mg PO BID 10/09/17 Gabapentin [Gabapentin] 100 mg PO BID 04/04/18 Lisinopril & Hydrochlorothiazi [Lisinopril/Hctz 10-12.5 mg] 1 tab PO DAILY 04/04 Nitroglycerin 0.4 mg SL [id number] PRN 04/04/18
[2018-04-09] MEDS ORDERED: PANTOPRAZOLE SODIUM IV 40 MG VIAL IV ONE (16:13)
--- NOTE | 2018-04-09 16:16 | RAD ---
Procedure: XR CHEST 1 VIEW Exam Date: 04/09/2018 Ordering Provider: Shade Schroeder Clinical Indication: chest pain Comparison: 04/04/2018 Findings: Borderline cardiomegaly. No focal lung consolidation. Subsegmental atelectasis in the lower lung [place] bilaterally. No pleural effusion. No pneumothorax. No acute osseous abnormality. Impression: 1. No acute abnormality in the chest. Electronically signed by: Hang Rosado MD 04/09/2018 4:15 PM CDT
[2018-04-09 17:46] VITALS: BP 163/68; TEMP 98.5; O2SAT 95
== END 2018-04-09 17:10 | disposition home or self-care (01) ==
LOC: ER 15:07
DX: K29.01 Acute gastritis with bleeding (principal); D50.0 Iron deficiency anemia secondary to blood loss (chronic); R07.89 Other chest pain; I48.91 Unspecified atrial fibrillation; K21.9 Gastro-esophageal reflux disease without esophagitis; E07.9 Disorder of thyroid, unspecified; I10 Essential (primary) hypertension; J44.9 Chronic obstructive pulmonary disease, unspecified; Z95.5 Presence of coronary angioplasty implant and graft; Z86.73 Personal history of transient ischemic attack (TIA), and cerebral infarction without residual deficits; Z79.899 Other long term (current) drug therapy; Z88.6 Allergy status to analgesic agent; Z88.8 Allergy status to other drugs, medicaments and biological substances; Z88.5 Allergy status to narcotic agent
CPT/HCPCS: 36415; 71045; 80048; 82550; 82553; 83690; 83880; 84484; 85025; 85610; 85730; 93005; 94760; J2405

== ENCOUNTER → 2018-04-15 | Outpatient (CLI) | payer MEDICARE ==
--- NOTE | 2018-04-15 14:11 | RAD ---
EXAM DESCRIPTION: Hip,Left 2 Views CLINICAL HISTORY: 57 years, Female, HIP PAIN COMPARISON: None TECHNIQUE: AP and frog leg lateral views of the hip FINDINGS: 2 views of the left hip reveal no fracture or dislocation. No lytic bone lesion. There is no joint space abnormality observed. IMPRESSION: Negative for fracture or dislocation. Electronically signed by: Brayan Stinson MD 04/15/2018 2:10 PM CDT
--- NOTE | 2018-04-15 14:11 | RAD ---
EXAM DESCRIPTION: Chest,2 Views CLINICAL HISTORY: COPD COMPARISON: Previous study April 09, 2018 TECHNIQUE: PA/lateral FINDINGS: There is no acute appearing cardiac or pulmonary abnormality. Heart size is large with normal pulmonary vascularity. No pleural effusion or pneumothorax. Discoid atelectasis is seen in the right midlung, left pericardiac region and left lower lobe. Lungs are otherwise clear with no consolidating infiltrate. Lateral view shows intact sternum and kyphotic T-spine. IMPRESSION: No acute process is identified in the chest. Electronically signed by: Brayan Stinson MD 04/15/2018 2:09 PM CDT
== END ==
LOC: LAB.O 12:03
PROVIDERS: ATTEND General Practice
DX: M25.559 Pain in unspecified hip (principal); J44.9 Chronic obstructive pulmonary disease, unspecified

== ENCOUNTER 2018-08-01 22:54 | Emergency (ER) | payer MEDICARE, OTHER ==
[2018-08-01] MEDS ORDERED: SODIUM CHLORIDE 0.9% 1000ML 1,000 ML IVS ONE (23:16)
--- NOTE | 2018-08-01 23:24 | ED.PDOC ---
History of Present Illness - General Chief Complaint: Blood Pressure Problem Stated Complaint: low BP, dizziness, nose bleed, Time Seen by Provider: 08/01/18 23:15 Source: patient, family Exam Limitations: no limitations - History of Present Illness Initial Comments: patient comes in today secondary to low blood pressure. Patient states she does for the past week that's running in the 80s systolic and she is getting dizzy and weak. In the past she has had some problems with GI bleeds secondary to gastritis and gastric ulcers. Patient states she has had some nausea with some tenderness peaks sputum as well as some black and tarry stools. However, she is on iron supplementation for her anemia as well. Patient states for the last 2 days she has had some abdominal discomfort with pain in the epigastric region with reflux and a burning quality. Additionally, she's had 2 nosebleeds today and with the loss of that blood plus the concern she had for her blood pressure she decided to come in. Patient has a history of pulmonary embolus and did have a filter placed but has since been removed. Patient is on blood thinners currently. She states she does have a history of congestive heart failure. Timing/Duration: 1 week, getting worse Improving Factors: nothing Worsening Factors: nothing Associated Symptoms: nausea/vomiting, other - see HPI Allergies/Adverse Reactions: Allergies Aspirin Allergy (Verified 02/15/17 21:29) Codeine Allergy (Verified 02/15/17 21:29) Droperidol [From Inapsine] Allergy (Verified 02/15/17 21:29) Ketorolac Tromethamine [From Toradol] Allergy (Verified 02/15/17 21:29) Lorazepam [From Ativan] Allergy (Verified 10/01/17 15:21) Morphine Allergy (Verified 02/15/17 21:29) Ondansetron [From Zofran] Allergy (Verified 02/15/17 21:29) Tramadol Allergy (Verified 10/01/17 15:21) Home Medications: Ambulatory Orders ALPRAZolam [Xanax] 0.5 mg PO TID PRN 08/22/16 Atorvastatin Calcium [Lipitor] 40 mg PO DAILY 08/22/16 Carvedilol 12.5 mg PO BID 08/22/16 Cyclobenzaprine HCl 5 mg PO TID PRN 08/22/16 Levothyroxine Sodium [Synthroid] 112 mcg PO DAILY 08/22/16 Oxycodone W/ Acetaminophen [Percocet 10-325 mg] 1 tab PO Q8H PRN 08/22/16 Promethazine HCl 25 mg PO BID PRN 08/22/16 Trazodone HCl 50 mg PO BEDTIME 08/22/16 Apixaban [Eliquis] 5 mg PO BID 02/15/17 Dicyclomine HCl 20 mg PO QID PRN 02/15/17 Fluticasone/Salmeterol 250/50 [Advair Diskus] 1 puff INH DAILY 10/01/17 Pantoprazole Sodium 40 mg PO BID 10/09/17 Gabapentin 100 mg PO BID 04/04/18 Lisinopril & Hydrochlorothiazi [Lisinopril/Hctz 10-12.5 mg] 1 tab PO DAILY 04/04/18 Nitroglycerin 0.4 mg SL [id number] PRN 04/04/18 Dimenhydrinate 50 mg PO PRN 08/02/18 Ferrous Gluconate 324 mg PO BID 08/02/18 Fluoxetine HCl 20 mg PO BID 08/02/18 Sucralfate 1 gm PO TID 08/02/18 Review of Systems - Review of Systems Constitutional: States: weakness. Denies: chills, fever EENTM: States: no symptoms reported. Denies: eye pain, ear pain, nose congestion, throat pain Respiratory: States: no symptoms reported. Denies: cough, short of breath Cardiology: States: no symptoms reported. Denies: chest pain, palpitations Gastrointestinal/Abdominal: States: see HPI, abdominal pain, nausea, vomiting, other. Denies: constipation, diarrhea Genitourinary: States: no symptoms reported Musculoskeletal: States: no symptoms reported Past Medical History (General) - Patient Medical History Hx Seizures: No Hx Stroke: Yes - TIA 11/2016; had a CVA - maybe 2010 Hx Dementia: No Hx Asthma: Yes Hx of COPD: Yes Hx Cardiac Disorders: Yes - A fib; cardiac ablation 2016; cardiac stent Hx Congestive Heart Failure: No Hx Pacemaker: No Hx Hypertension: Yes Hx Thyroid Disease: Yes Hx Diabetes: No Hx Gastroesophageal Reflux: Yes Hx Renal Disease: No Hx Cancer: No Hx of HIV: No Hx Hepatitis C: No Hx MRSA: No - Vaccination History Hx Tetanus, Diphtheria Vaccination: No Hx Influenza Vaccination: Yes - 2018 Hx Pneumococcal Vaccination: Yes - 2017 - Social History Hx Tobacco Use: No Hx Alcohol Use: No Hx Substance Use: No Hx Substance Use Treatment: No Hx Depression: No Hx Physical Abuse: No Hx Emotional Abuse: No Hx Suspected Abuse: No Family Medical History - Family History Mother Family History: No Known Living Status: Still Living Hx Family Hypertension: Yes Hx Family Cancer: Yes - ovarian Sister Hx Family Stroke: Yes - mom Hx Cardiac Disease: Yes - parents Hx Family;Other: SWEETS Disease -sister Physical Exam - Physical Exam General Appearance: Alert, Comfortable, No apparent distress Eye Exam: bilateral normal Ears, Nose, Throat: hearing grossly normal, normal ENT inspection, normal pharynx Neck: non-tender, full range of motion, supple, normal inspection Respiratory: chest non-tender, lungs clear, normal breath sounds, no respiratory distress Cardiovascular/Chest: normal peripheral pulses, regular rate, rhythm, no edema, no murmur Peripheral Pulses: radial,right: 2+, radial,left: 2+ Gastrointestinal/Abdominal: normal bowel sounds, soft, tenderness - TTP at the epigastric area with on rebound and no guarding, non distended Rectal Exam: normal exam, normal rectal tone Extremity: non-tender Neurologic: alert, oriented x 3 Progress - Progress Progress: 08/02/18 02:13 patient is asymptomatic but blood pressures are still in the 80s-90s systolic. Patient to half pain medications and hold lisinopril and follow up with PCP on Friday to recheck - Results/Orders Results/Orders: 08/01/18 23:16 Sodium Chloride 0.9% 1000ML [Ns 1000 ml] 1,000 ml IVS ONCE URINALYSIS Stat 08/02/18 00:09 Promethazine HCl Inj [Phenergan Inj] 25 mg Sodium Chloride 0.9% 50Ml [NS 50ml] 50 ml IVPB ONCE Laboratory Results WBC 9.1 K/mm3 (4.8-10.8) 08/01/18 23:40 RBC 3.67 M/mm3 (4.20-5.40) L 08/01/18 23:40 Hgb 11.4 gm/dL (12.0-16.0) L 08/01/18 23:40 Hct 35.0 % (36.0-47.0) L 08/01/18 23:40 MCV 95.4 fl (81.0-99.0) 08/01/18 23:40 MCH 31.0 pg (27.0-31.0) 08/01/18 23:40 MCHC 32.6 g/dL (33.0-37.0) L 08/01/18 23:40 RDW 13.3 % (11.5-14.5) 08/01/18 23:40 Plt Count 318 K/mm3 (130-400) 08/01/18 23:40 MPV 6.6 fl (7.40-10.4) L 08/01/18 23:40 Absolute Neuts (auto) 4.30 K/uL (1.8-6.8) 08/01/18 23:40 Absolute Lymphs (auto) 3.20 K/uL (1.0-3.4) 08/01/18 23:40 Absolute Monos (auto) 1.00 K/uL (0.2-0.8) H 08/01/18 23:40 Absolute Eos (auto) 0.30 K/uL (0.0-0.4) 08/01/18 23:40 Absolute Basos (auto) 0.10 K/uL (0.0-0.1) 08/01/18 23:40 Neutrophils % 47.9 % (42.0-78.0) 08/01/18 23:40 Lymphocytes % 35.8 % (20.0-50.0) 08/01/18 23:40 Monocytes % 11.5 % (2.0-9.0) H 08/01/18 23:40 Eosinophils % 3.8 % (1.0-5.0) 08/01/18 23:40 Basophils % 1.0 % (0.0-2.0) 08/01/18 23:40 PT 11.0 SECONDS (9.0-10.9) H 08/01/18 23:40 INR 1.10 (0.9-1.15) 08/01/18 23:40 PTT (SP) 27.9 SECONDS (21.8-31.6) 08/01/18 23:40 Sodium 136 mmol/L (135-145) 08/01/18 23:40 Potassium 3.9 mmol/L (3.6-5.0) 08/01/18 23:40 Chloride 99 mmol/L (101-111) L 08/01/18 23:40 Carbon Dioxide 30 mmol/L (21-31) 08/01/18 23:40 Anion Gap 10.9 (12-18) L 08/01/18 23:40 BUN 28 mg/dL (7-18) H 08/01/18 23:40 Creatinine 1.29 mg/dL (0.6-1.3) 08/01/18 23:40 BUN/Creatinine Ratio 21.7 (10-20) H 08/01/18 23:40 Random Glucose 82 mg/dL (70-105) 08/01/18 23:40 Serum Osmolality 276.5 mOsm/L (275-295) 08/01/18 23:40 Calcium 9.0 mg/dL (8.4-10.2) 08/01/18 23:40 Total Bilirubin 0.4 mg/dL (0.2-1.0) 08/01/18 23:40 AST 18 IU/L (10-42) 08/01/18 23:40 ALT 12 IU/L (10-60) 08/01/18 23:40 Alkaline Phosphatase 68 IU/L (42-121) 08/01/18 23:40 Serum Total Protein 7.2 gm/dL (6.4-8.2) 08/01/18 23:40 Albumin 3.9 g/dl (3.2-5.5) 08/01/18 23:40 Globulin 3.3 gm/dL (2.3-3.5) 08/01/18 23:40 Albumin/Globulin Ratio 1.2 (1.1-1.9) 08/01/18 23:40 Amylase 28 U/L (28-100) 08/01/18 23:40 Lipase 27 U/L (22-51) 08/01/18 23:40 Stool Occult Blood Negative 08/01/18 23:18 Patient Name: WENDY LUNA Gender: Female Date of : 1960 Referring Physician: MARY LEIJA Organization: [facility] Accession Number: [id number] Requested Date: August 01, 2018 23:16 Report Status: Final Requested Procedure: 1 Procedure Description: Abdoment/Pelvis w/o Contrast Modality: CT Findings Reporting MD: Pamela Roberts Fellow MD: Not available Dictation Time: Consulting Group Analyst: Not available [facility] Nurse Date: CT ABDOMEN AND PELVIS WITHOUT CONTRAST. 08/02/2018 Abdominal pain. COMPARISON: None. TECHNIQUE: Axial [address] imaging of the abdomen and pelvis. Reformatted coronal and sagittal images reviewed. Examination was performed according to our departmental dose-optimization program, which includes automated exposure control, adjustment of the mA and/or kV according to patient size and/or use of iterative reconstruction technique. FINDINGS: LOWER THORAX: Right middle lobe and lingular atelectasis/scar. Heart is enlarged. ABDOMEN: LIVER/GALLBLADDER: Normal liver. Gallbladder has been resected. Common bile duct is dilated to 1.1 cm. No distal obstructing stone or mass. SPLEEN/PANCREAS: Normal spleen. Mild fatty atrophy of the pancreas. KIDNEYS/ADRENAL GLANDS: Normal adrenal glands. Normal right kidney. There is a 6 mm hyperdense lesion along the posterior capsule of the left kidney which may represent a tiny hyperdense cyst. RETROPERITONEAL VESSELS/NODES: Mild aortic atherosclerosis. No aneurysm. Normal caliber inferior vena cava. No retroperitoneal lymphadenopathy. BOWEL: There is a small hiatal hernia distended with fluid. Remaining stomach appears normal. Normal small bowel loops. No visualized appendix. Large amount of fecal loading within the colon. No obstruction or colitis. A few descending colon [employer] [facility] [address] [place] [address] T [phone] F [phone] [email or web address] Report exported on Fri, Aug 02, 2018 00:14:23 -0600 - Page 2 of 2 diverticula are seen. No diverticulitis. MESENTERY/PERITONEUM: No central mesenteric adenopathy. No ascites or free air. PELVIS: BLADDER: Normal bladder. GENITAL ORGANS: Uterus is surgically absent. PERITONEUM: No free fluid or adenopathy. BONES AND SOFT TISSUES: Normal lumbar lordosis. Mild L5-S1 diffuse disc bulge. Mild lower thoracic spondylosis. Anterior wedging of T8 may be due to remote fracture or developmental. Intact bony pelvis. IMPRESSION: 1. Small hiatal hernia. 2. Postcholecystectomy common bile duct dilatation without obstructing etiology. 3. Mild descending colon diverticulosis. No diverticulitis. 4. 6 mm hyperdense lesion posterior left kidney capsule may represent tiny hyperdense cyst. Sonography can confirm.. 5. Cardiomegaly. Departure - Departure Clinical Impression: Gastritis Qualifiers: Gastritis type: unspecified gastritis Chronicity: acute Gastritis bleeding: without bleeding Qualified Code(s): K29.00 - Acute gastritis without bleeding Disposition: Discharge to Home or Self Care Condition: Fair Departure Forms: ED Discharge - Pt. Copy, Patient Portal Self Enrollment Instructions: DI for High Blood Pressure Referrals: Anshul Kumar MD [Primary Care Provider] - 1-2 Weeks Home Medications: Ambulatory Orders ALPRAZolam [Xanax] 0.5 mg PO TID PRN 08/22/16 Atorvastatin Calcium [Lipitor] 40 mg PO DAILY 08/22/16 Carvedilol 12.5 mg PO BID 08/22/16 Cyclobenzaprine HCl 5 mg PO TID PRN 08/22/16 Levothyroxine Sodium [Synthroid] 112 mcg PO DAILY 08/22/16 Oxycodone W/ Acetaminophen [Percocet 10-325 mg] 1 tab PO Q8H PRN 08/22/16 Promethazine HCl 25 mg PO BID PRN 08/22/16 Trazodone HCl 50 mg PO BEDTIME 08/22/16 Apixaban [Eliquis] 5 mg PO BID 02/15/17 Dicyclomine HCl 20 mg PO QID PRN 02/15/17 Fluticasone/Salmeterol 250/50 [Advair Diskus] 1 puff INH DAILY 10/01/17 Pantoprazole Sodium 40 mg PO BID 10/09/17 Gabapentin 100 mg PO BID 04/04/18 Lisinopril & Hydrochlorothiazi [Lisinopril/Hctz 10-12.5 mg] 1 tab PO DAILY 04/04/18 Nitroglycerin 0.4 mg SL [id number] PRN 04/04/18 Dimenhydrinate 50 mg PO PRN 08/02/18 Ferrous Gluconate 324 mg PO BID 08/02/18 Fluoxetine HCl 20 mg PO BID 08/02/18 Sucralfate 1 gm PO TID 08/02/18 Additional Instructions: hold lisinopril and half pain medications. Follow up with PCP on Friday to discuss GI consult/EGD and to recheck BP. Return to ER for altered LOC, weakness
[2018-08-02] MEDS ORDERED: ONDANSETRON ODT 8 MG TAB SL ONE
[2018-08-02] MEDS ORDERED: PROMETHAZINE HCL INJ 25 MG in SODIUM CHLORIDE 0.9% 50ML 50 ML IVPB ONE (00:09)
[2018-08-02] MEDS ORDERED: SODIUM CHLORIDE 0.9% 50ML 50 ML ONE (00:12)
[2018-08-02] MEDS ORDERED: PROMETHAZINE HCL INJ 25 MG/ML VIAL ONE (00:12)
--- NOTE | 2018-08-02 00:13 | CT ---
CT ABDOMEN AND PELVIS WITHOUT CONTRAST. 08/02/2018 Abdominal pain. COMPARISON: None. TECHNIQUE: Axial [address] imaging of the abdomen and pelvis. Reformatted coronal and sagittal images reviewed. Examination was performed according to our departmental dose-optimization program, which includes automated exposure control, adjustment of the mA and/or kV according to patient size and/or use of iterative reconstruction technique. FINDINGS: LOWER THORAX: Right middle lobe and lingular atelectasis/scar. Heart is enlarged. ABDOMEN: LIVER/GALLBLADDER: Normal liver. Gallbladder has been resected. Common bile duct is dilated to 1.1 cm. No distal obstructing stone or mass. SPLEEN/PANCREAS: Normal spleen. Mild fatty atrophy of the pancreas. KIDNEYS/ADRENAL GLANDS: Normal adrenal glands. Normal right kidney. There is a 6 mm hyperdense lesion along the posterior capsule of the left kidney which may represent a tiny hyperdense cyst. RETROPERITONEAL VESSELS/NODES: Mild aortic atherosclerosis. No aneurysm. Normal caliber inferior vena cava. No retroperitoneal lymphadenopathy. BOWEL: There is a small hiatal hernia distended with fluid. Remaining stomach appears normal. Normal small bowel loops. No visualized appendix. Large amount of fecal loading within the colon. No obstruction or colitis. A few descending colon diverticula are seen. No diverticulitis. MESENTERY/PERITONEUM: No central mesenteric adenopathy. No ascites or free air. PELVIS: BLADDER: Normal bladder. GENITAL ORGANS: Uterus is surgically absent. PERITONEUM: No free fluid or adenopathy. BONES AND SOFT TISSUES: Normal lumbar lordosis. Mild L5-S1 diffuse disc bulge. Mild lower thoracic spondylosis. Anterior wedging of T8 may be due to remote fracture or developmental. Intact bony pelvis. IMPRESSION: 1. Small hiatal hernia. 2. Postcholecystectomy common bile duct dilatation without obstructing etiology. 3. Mild descending colon diverticulosis. No diverticulitis. 4. 6 mm hyperdense lesion posterior left kidney capsule may represent tiny hyperdense cyst. Sonography can confirm.. 5. Cardiomegaly. Electronically signed by: Pamela Roberts DO 08/02/2018 12:11 AM [facility]
[2018-08-02 02:15] VITALS: O2SAT 96
[2018-08-02 02:48] VITALS: BP 93/60; TEMP 97.6
== END 2018-08-02 02:48 | disposition home or self-care (01) ==
LOC: ER 22:54
DX: K29.00 Acute gastritis without bleeding (principal); R42 Dizziness and giddiness; R53.1 Weakness; D64.9 Anemia, unspecified; I50.9 Heart failure, unspecified; I48.91 Unspecified atrial fibrillation; J44.9 Chronic obstructive pulmonary disease, unspecified; I10 Essential (primary) hypertension; E07.9 Disorder of thyroid, unspecified; K21.9 Gastro-esophageal reflux disease without esophagitis; Z79.899 Other long term (current) drug therapy; Z86.711 Personal history of pulmonary embolism; Z88.8 Allergy status to other drugs, medicaments and biological substances; Z86.73 Personal history of transient ischemic attack (TIA), and cerebral infarction without residual deficits; Z95.5 Presence of coronary angioplasty implant and graft; Z79.01 Long term (current) use of anticoagulants; Z88.5 Allergy status to narcotic agent; Z88.6 Allergy status to analgesic agent
CPT/HCPCS: 36415; 74176; 80053; 81001; 82150; 82270; 83690; 85025; 85610; 85730; A4216; J2550; J7030

== ENCOUNTER 2018-09-21 16:32 | Emergency (ER) | payer OTHER ==
--- NOTE | 2018-09-21 17:11 | ED.PDOC ---
History of Present Illness - General Chief Complaint: Respiratory Problem Stated Complaint: SOB COUGH/[facility] SENT FOR IV FLUIDS Time Seen by Provider: 09/21/18 17:11 Source: patient Exam Limitations: no limitations - History of Present Illness Initial Comments: Sahara Vega 57 y/o female with history of asthma came today with cough and wheezing since this am had been cleaning her house with chlorox since she will get rid of her cats.Denies chest pains ,fever ,N/V. Timing/Duration: 4-6 hours Severity: moderate Activities at Onset: none Possible Cause: allergen exposure Improving Factors: nothing Worsening Factors: nothing Associated Symptoms: wheezing Respiratory Risk Factors: exposure to allergen Allergies/Adverse Reactions: Allergies Aspirin Allergy (Verified 09/21/18 16:37) Codeine Allergy (Verified 09/21/18 16:37) Droperidol [From Inapsine] Allergy (Verified 09/21/18 16:37) Ketorolac Tromethamine [From Toradol] Allergy (Verified 09/21/18 16:37) Lorazepam [From Ativan] Allergy (Verified 09/21/18 16:37) Morphine Allergy (Verified 09/21/18 16:37) Ondansetron [From Zofran] Allergy (Verified 09/21/18 16:37) Tramadol Allergy (Verified 09/21/18 16:37) Home Medications: Ambulatory Orders ALPRAZolam [Xanax] 0.5 mg PO TID PRN 08/22/16 Atorvastatin Calcium [Lipitor] 40 mg PO DAILY 08/22/16 Carvedilol 12.5 mg PO BID 08/22/16 Cyclobenzaprine HCl 5 mg PO TID PRN 08/22/16 Levothyroxine Sodium [Synthroid] 112 mcg PO DAILY 08/22/16 Oxycodone W/ Acetaminophen [Percocet 10-325 mg] 1 tab PO Q8H PRN 08/22/16 Promethazine HCl 25 mg PO BID PRN 08/22/16 Trazodone HCl 50 mg PO BEDTIME 08/22/16 Apixaban [Eliquis] 5 mg PO BID 02/15/17 Dicyclomine HCl 20 mg PO QID PRN 02/15/17 Fluticasone/Salmeterol 250/50 [Advair Diskus] 1 puff INH DAILY 10/01/17 Pantoprazole Sodium 40 mg PO BID 10/09/17 Gabapentin 100 mg PO BID 04/04/18 Lisinopril & Hydrochlorothiazi [Lisinopril/Hctz 10-12.5 mg] 1 tab PO DAILY 04/04/18 Nitroglycerin 0.4 mg SL [id number] PRN 04/04/18 Dimenhydrinate 50 mg PO PRN 08/02/18 Ferrous Gluconate 324 mg PO BID 08/02/18 Fluoxetine HCl 20 mg PO BID 08/02/18 Sucralfate 1 gm PO TID 08/02/18 predniSONE 20 mg PO DAILY 10 Days #10 tab 09/21/18 Review of Systems - Review of Systems Constitutional: States: no symptoms reported EENTM: States: no symptoms reported Respiratory: States: see HPI Cardiology: States: no symptoms reported Gastrointestinal/Abdominal: States: no symptoms reported Genitourinary: States: no symptoms reported Musculoskeletal: States: no symptoms reported Skin: States: no symptoms reported All other Systems: Reviewed and Negative, No Change from Baseline Past Medical History (General) - Patient Medical History Hx Seizures: No Hx Stroke: Yes - TIA 11/2016; had a CVA - maybe 2010 Hx Dementia: No Hx Asthma: Yes Hx of COPD: Yes Hx Cardiac Disorders: Yes - A fib; cardiac ablation 2016; cardiac stent Hx Congestive Heart Failure: No Hx Pacemaker: No Hx Hypertension: Yes Hx Thyroid Disease: Yes Hx Diabetes: No Hx Gastroesophageal Reflux: Yes Hx Renal Disease: No Hx Cancer: No Hx of HIV: No Hx Hepatitis C: No Hx MRSA: No Hx 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 Surgical History: appendectomy, cholecystectomy, other - hysterectomy,cardiac cath - Vaccination History Hx Tetanus, Diphtheria Vaccination: No Hx Influenza Vaccination: Yes Hx Pneumococcal Vaccination: Yes Immunizations Up to Date: No - Social History Hx Tobacco Use: No Hx Alcohol Use: No Hx Substance Use: No Hx Substance Use Treatment: No Hx Depression: No Hx Physical Abuse: No Hx Emotional Abuse: No Hx Suspected Abuse: No - Activities of Daily Living Grooming Ability: Independent Eating (Feeding) Ability: Independent Toileting Ability: Independent - Female History Patient is a Female of Child Bearing Age (10 -59 yrs old): No Family Medical History - Family History Mother Family History: No Known Living Status: Still Living Hx Family Hypertension: Yes Hx Family Cancer: Yes - ovarian Sister Hx Family Stroke: Yes - mom Hx Cardiac Disease: Yes - parents Hx Family;Other: SWEETS Disease -sister Physical Exam - Physical Exam General Appearance: Alert, Comfortable, No apparent distress Eyes, Ears, Nose, Throat Exam: PERRL/EOMI, normal ENT inspection Neck: full range of motion, supple Respiratory: chest non-tender, no respiratory distress, wheezing Cardiovascular/Chest: normal peripheral pulses, regular rate, rhythm, no murmur Peripheral Pulses: radial,right: 2+, radial,left: 2+ Gastrointestinal/Abdominal: normal bowel sounds, non tender, soft Extremity: no pedal edema, no calf tenderness Neurologic: alert, oriented x 3 Skin Exam: normal color, warm/dry Progress - Progress Progress: 09/21/18 18:49 Vital Signs - 8 hr 09/21/18 09/21/18 09/21/18 16:37 16:44 17:20 Temperature 100.3 F H Pulse Rate Pulse Rate [ 84 90 MONITOR] Respiratory 20 20 16 Rate Blood Pressure 143/87 131/98 [RA] O2 Sat by Pulse 98 96 Oximetry 09/21/18 09/21/18 18:24 18:39 Temperature Pulse Rate 101 H Pulse Rate [ 98 H MONITOR] Respiratory 20 20 Rate Blood Pressure 139/86 [RA] O2 Sat by Pulse 98 99 Oximetry 09/21/18 19:08 Has nebulizer machine at home nad wants to go home. - Results/Orders Results/Orders: 09/21/18 17:11 IV Care:Saline Lock per Protoc QSHIFT 09/21/18 17:12 Chest,1 View [RAD] Stat 09/22/18 09:00 [facility] Daily Laboratory Results - last 24 hr 09/21/18 17:10 WBC 5.2 RBC 4.13 L Hgb 13.4 Hct 40.0 MCV 96.8 MCH 32.4 H MCHC 33.5 RDW 14.2 Plt Count 272 MPV 6.4 L Absolute Neuts (auto) 3.50 Absolute Lymphs (auto) 1.10 Absolute Monos (auto) 0.60 Absolute Eos (auto) 0.00 Absolute Basos (auto) 0.10 Neutrophils % 66.8 Lymphocytes % 21.1 Monocytes % 10.8 H Eosinophils % 0.3 L Basophils % 1.0 PT 10.3 INR 1.03 PTT (SP) 28.7 Sodium 139 Potassium 3.4 L Chloride 102 Carbon Dioxide 24 Anion Gap 16.4 BUN 6 L Creatinine 0.72 BUN/Creatinine Ratio 8.3 L Random Glucose 92 Serum Osmolality 274.8 L Calcium 9.2 Magnesium 1.9 Total Bilirubin 0.6 Direct Bilirubin 0.2 Indirect Bilirubin 0.4 AST 36 ALT 21 Alkaline Phosphatase 81 Creatine Kinase 135 CK-MB (CK-2) 1.5 CK-MB (CK-2) % 1.11 Troponin I < 0.02 B-Natriuretic Peptide 70.3 Serum Total Protein 8.8 H Albumin 4.7 - EKG/XRAY/CT XRAY: chest - mild patchy atelectasis or PNA left lung base Departure - Departure Clinical Impression: Asthma with exacerbation Qualifiers: Asthma severity: moderate Asthma persistence: unspecified Qualified Code(s): J45.901 - Unspecified asthma with (acute) exacerbation Time of Disposition: 19:09 Disposition: Discharge to Home or Self Care Condition: Fair Departure Forms: ED Discharge - Pt. Copy, Patient Portal Self Enrollment Instructions: DI for Asthma -- Adult Referrals: Anshul Kumar MD [Primary Care Provider] - 1-2 Weeks Prescriptions: predniSONE 20 mg PO DAILY 10 Days #10 tab Home Medications: Ambulatory Orders ALPRAZolam [Xanax] 0.5 mg PO TID PRN 08/22/16 Atorvastatin Calcium [Lipitor] 40 mg PO DAILY 08/22/16 Carvedilol 12.5 mg PO BID 08/22/16 Cyclobenzaprine HCl 5 mg PO TID PRN 08/22/16 Levothyroxine Sodium [Synthroid] 112 mcg PO DAILY 08/22/16 Oxycodone W/ Acetaminophen [Percocet 10-325 mg] 1 tab PO Q8H PRN 08/22/16 Promethazine HCl 25 mg PO BID PRN 08/22/16 Trazodone HCl 50 mg PO BEDTIME 08/22/16 Apixaban [Eliquis] 5 mg PO BID 02/15/17 Dicyclomine HCl 20 mg PO QID PRN 02/15/17 Fluticasone/Salmeterol 250/50 [Advair Diskus] 1 puff INH DAILY 10/01/17 Pantoprazole Sodium 40 mg PO BID 10/09/17 Gabapentin 100 mg PO BID 04/04/18 Lisinopril & Hydrochlorothiazi [Lisinopril/Hctz 10-12.5 mg] 1 tab PO DAILY 04/04/18 Nitroglycerin 0.4 mg SL [id number] PRN 04/04/18 Dimenhydrinate 50 mg PO PRN 08/02/18 Ferrous Gluconate 324 mg PO BID 08/02/18 Fluoxetine HCl 20 mg PO BID 08/02/18 Sucralfate 1 gm PO TID 08/02/18 predniSONE 20 mg PO DAILY 10 Days #10 tab 09/21/18 Additional Instructions: Return to ER as needed;Continue with all home medications;Follow up with your primary Md 23 September 2018 for recheck
[2018-09-21] MEDS ORDERED: IPRATROPIUM/ALBUTEROL 3 ML VIAL NEB ONE (18:18)
[2018-09-21] MEDS ORDERED: methylPREDNISolone SODIUM SUC 125 MG/2 ML VIAL IV ONE (18:19)
[2018-09-21] MEDS ORDERED: AZITHROMYCIN 250 MG TAB PO ONE (18:32)
[2018-09-21] MEDS ORDERED: cefTRIAXone SODIUM 1 GM VIAL IM ONE (18:32)
[2018-09-21] MEDS ORDERED: CETIRIZINE HCL 10 MG TAB PO ONE (18:32)
[2018-09-21] MEDS ORDERED: BENZONATATE PERLES 100 MG CAP PO ONE (18:32)
[2018-09-21] MEDS ORDERED: LIDOCAINE 1% 2 ML VIAL INJ ONE ×2 (18:40→18:41)
[2018-09-21] MEDS ORDERED: methylPREDNISolone SODIUM SUC 125 MG/2 ML VIAL IM ONE (18:40)
[2018-09-21 19:31] VITALS: BP 129/83; TEMP 99.1; O2SAT 98
== END 2018-09-21 19:33 | disposition home or self-care (01) ==
LOC: ER 16:32
DX: J45.901 Unspecified asthma with (acute) exacerbation (principal); J44.9 Chronic obstructive pulmonary disease, unspecified; I48.91 Unspecified atrial fibrillation; I10 Essential (primary) hypertension; E07.9 Disorder of thyroid, unspecified; K21.9 Gastro-esophageal reflux disease without esophagitis; Z79.01 Long term (current) use of anticoagulants; Z79.899 Other long term (current) drug therapy; Z86.718 Personal history of other venous thrombosis and embolism; Z86.711 Personal history of pulmonary embolism; Z95.5 Presence of coronary angioplasty implant and graft; Z86.73 Personal history of transient ischemic attack (TIA), and cerebral infarction without residual deficits; Z88.8 Allergy status to other drugs, medicaments and biological substances; Z88.5 Allergy status to narcotic agent; Z88.6 Allergy status to analgesic agent
CPT/HCPCS: 71045; 80048; 80076; 82550; 82553; 83880; 84484; 85025; 85610; 85730; 94640; J0696; J2930; J7620; Q0144

== ENCOUNTER 2018-09-26 19:04 | Inpatient (IN) | payer OTHER ==
[2018-09-26] MEDS ORDERED: methylPREDNISolone SODIUM SUC 125 MG/2 ML VIAL IV ONE (19:16)
[2018-09-26] MEDS ORDERED: IPRATROPIUM/ALBUTEROL 3 ML VIAL NEB ONE ×3 (19:17→19:20)
[2018-09-26] MEDS ORDERED: cloNIDine HCL 0.1 MG TAB PO ONE (19:17)
--- NOTE | 2018-09-26 19:27 | ED.PDOC ---
History of Present Illness - General Time Seen by Provider: 09/26/18 19:16 Source: patient Exam Limitations: clinical condition - History of Present Illness Initial Comments: c/o dyspnea worsening over the past week similar to previous COPD + asthma exacerbations. Has been seen recently & placed on low dose prednisone, Rocephin injection & abx. Timing/Duration: 1 week Severity: severe Activities at Onset: none Possible Cause: frequent episodes Improving Factors: nothing Worsening Factors: movement, other - exertion Associated Symptoms: anxiety, wheezing Allergies/Adverse Reactions: Allergies Aspirin Allergy (Verified 09/21/18 16:37) Codeine Allergy (Verified 09/21/18 16:37) Droperidol [From Inapsine] Allergy (Verified 09/21/18 16:37) Ketorolac Tromethamine [From Toradol] Allergy (Verified 09/21/18 16:37) Lorazepam [From Ativan] Allergy (Verified 09/21/18 16:37) Morphine Allergy (Verified 09/21/18 16:37) Ondansetron [From Zofran] Allergy (Verified 09/21/18 16:37) Tramadol Allergy (Verified 09/21/18 16:37) Home Medications: Ambulatory Orders ALPRAZolam [Xanax] 0.5 mg PO TID PRN 08/22/16 Atorvastatin Calcium [Lipitor] 40 mg PO DAILY 08/22/16 Carvedilol 12.5 mg PO BID 08/22/16 Cyclobenzaprine HCl 5 mg PO TID PRN 08/22/16 Levothyroxine Sodium [Synthroid] 112 mcg PO DAILY 08/22/16 Oxycodone W/ Acetaminophen [Percocet 10-325 mg] 1 tab PO Q8H PRN 08/22/16 Promethazine HCl 25 mg PO BID PRN 08/22/16 Trazodone HCl 50 mg PO BEDTIME 08/22/16 Apixaban [Eliquis] 5 mg PO BID 02/15/17 Dicyclomine HCl 20 mg PO QID PRN 02/15/17 Fluticasone/Salmeterol 250/50 [Advair Diskus] 1 puff INH DAILY 10/01/17 Pantoprazole Sodium 40 mg PO BID 10/09/17 Gabapentin 100 mg PO BID 04/04/18 Lisinopril & Hydrochlorothiazi [Lisinopril/Hctz 10-12.5 mg] 1 tab PO DAILY 04/04/18 Nitroglycerin 0.4 mg SL [id number] PRN 04/04/18 Dimenhydrinate 50 mg PO PRN 08/02/18 Ferrous Gluconate 324 mg PO BID 08/02/18 Fluoxetine HCl 20 mg PO BID 08/02/18 Sucralfate 1 gm PO TID 08/02/18 predniSONE 20 mg PO DAILY 10 Days #10 tab 09/21/18 Review of Systems - Review of Systems Constitutional: States: see HPI, malaise, weakness EENTM: States: see HPI Respiratory: States: see HPI, cough, short of breath, wheezing Cardiology: States: see HPI, other - "tight". Denies: edema Gastrointestinal/Abdominal: States: nausea. Denies: abdominal pain Genitourinary: States: no symptoms reported Musculoskeletal: States: no symptoms reported Skin: States: no symptoms reported Neurological: States: no symptoms reported Hematologic/Lymphatic: States: no symptoms reported Past Medical History (General) - Patient Medical History Hx Seizures: No Hx Stroke: Yes - TIA 11/2016; had a CVA - maybe 2010 Hx Dementia: No Hx Asthma: Yes Hx of COPD: Yes Hx Cardiac Disorders: Yes - A fib; cardiac ablation 2016; cardiac stent Hx Congestive Heart Failure: No Hx Pacemaker: No Hx Hypertension: Yes Hx Thyroid Disease: Yes Hx Diabetes: No Hx Gastroesophageal Reflux: Yes Hx Renal Disease: No Hx Cancer: No Hx of HIV: No Hx Hepatitis C: No Hx MRSA: No - Vaccination History Hx Tetanus, Diphtheria Vaccination: No Hx Influenza Vaccination: Yes Hx Pneumococcal Vaccination: Yes - Social History Hx Tobacco Use: No Hx Alcohol Use: No Hx Substance Use: No Hx Substance Use Treatment: No Hx Depression: No Hx Physical Abuse: No Hx Emotional Abuse: No Hx Suspected Abuse: No Family Medical History - Family History Mother Family History: No Known Living Status: Still Living Hx Family Hypertension: Yes Hx Family Cancer: Yes - ovarian Sister Hx Family Stroke: Yes - mom Hx Cardiac Disease: Yes - parents Hx Family;Other: SWEETS Disease -sister Physical Exam - Physical Exam General Appearance: Alert, Anxious, Obvious distress Eyes, Ears, Nose, Throat Exam: normal ENT inspection, other - moist mucosa Neck: full range of motion, supple, normal inspection Respiratory: respiratory distress, decreased breath sounds, accessory muscle use, wheezing Cardiovascular/Chest: regular rate, rhythm, no edema, tachycardia Gastrointestinal/Abdominal: non tender, soft, no organomegaly Extremity: normal range of motion, normal inspection, normal capillary refill Neurologic: alert, normal mood/affect, oriented x 3 Skin Exam: normal color, warm/dry Progress - Progress Progress: 09/26/18 20:59 First 3 nebs in. Better but still wheezing & with decreased volumes. 09/27/18 00:11 Still wheezing after continuous albuterol but much improved. c/o mild nausea. Will admit for continued nebs & continued antibiotic coverage. - Results/Orders Results/Orders: WBC 12 Hgb 13 CMP nml - EKG/XRAY/CT XRAY: chest - no acute process - Consult/PCP Time Called: 00:14 Consult/PCP: Elizabeth Vasques NP Departure - Departure Clinical Impression: COPD exacerbation Time of Disposition: 23:57 Disposition: Admit Patient Condition: Fair Home Medications: Ambulatory Orders ALPRAZolam [Xanax] 0.5 mg PO TID PRN 08/22/16 Atorvastatin Calcium [Lipitor] 40 mg PO DAILY 08/22/16 Carvedilol 12.5 mg PO BID 08/22/16 Cyclobenzaprine HCl 5 mg PO TID PRN 08/22/16 Levothyroxine Sodium [Synthroid] 112 mcg PO DAILY 08/22/16 Oxycodone W/ Acetaminophen [Percocet 10-325 mg] 1 tab PO Q8H PRN 08/22/16 Promethazine HCl 25 mg PO BID PRN 08/22/16 Trazodone HCl 50 mg PO BEDTIME 08/22/16 Apixaban [Eliquis] 5 mg PO BID 02/15/17 Dicyclomine HCl 20 mg PO QID PRN 02/15/17 Fluticasone/Salmeterol 250/50 [Advair Diskus] 1 puff INH DAILY 10/01/17 Pantoprazole Sodium 40 mg PO BID 10/09/17 Gabapentin 100 mg PO BID 04/04/18 Lisinopril & Hydrochlorothiazi [Lisinopril/Hctz 10-12.5 mg] 1 tab PO DAILY 04/04/18 Nitroglycerin 0.4 mg SL [id number] PRN 04/04/18 Dimenhydrinate 50 mg PO PRN 08/02/18 Ferrous Gluconate 324 mg PO BID 08/02/18 Fluoxetine HCl 20 mg PO BID 08/02/18 Sucralfate 1 gm PO TID 08/02/18 predniSONE 20 mg PO DAILY 10 Days #10 tab 09/21/18 Decision To Admit - Decistion To Admit Decision to Admit Reason: Admit from ER Decision to Admit Date: 09/26/18 Decision to Admit Time: 23:57
--- NOTE | 2018-09-26 20:03 | RAD ---
EXAM: AP CHEST RADIOGRAPH CLINICAL INDICATION: Dyspnea. COMPARISON: Chest radiograph September 21, 2018. FINDINGS: Shifting bibasilar atelectasis. Lungs are otherwise clear. Cardiac size and pulmonary vasculature are normal. No pleural effusions. No pneumothorax, pneumomediastinum or free peritoneal gas. No hilar or mediastinal lymphadenopathy. No mediastinal widening. Bones are intact on this single view. IMPRESSION: Shifting bibasilar atelectasis. Otherwise, normal portable AP chest radiograph. Electronically signed by: Marshall Roberts MD 09/26/2018 8:00 PM CDT
[2018-09-26] MEDS ORDERED: SODIUM CHL 0.9% 50ML VIAL 3 ML, ALBUTEROL SULFATE NEBS 15 MG NEB ONE ×2 (20:59)
[2018-09-26] MEDS ORDERED: SODIUM CHLORIDE 0.9% NEB 3 ML VIAL ONE (21:43)
[2018-09-26] MEDS ORDERED: ALBUTEROL SULFATE 2.5 MG/3 ML VIAL NEB ONE ×2 (21:43→23:54)
[2018-09-26] MEDS ORDERED: AZITHROMYCIN IV 500 MG in SODIUM CHLORIDE 0.9% 250ML 250 ML IVPB ONE (23:54)
[2018-09-26] MEDS ORDERED: cefTRIAXone SODIUM 1 GM in SODIUM CHL 0.9% 50ML MIN-BAG+ 50 ML IVPB ONE (23:54)
[2018-09-26] MEDS ORDERED: PROMETHAZINE TAB (ER DISP) 25 MG TAB PO ONE (23:55)
[2018-09-26] MEDS ORDERED: cefTRIAXone SODIUM 1 GM VIAL ONE (23:58)
[2018-09-26] MEDS ORDERED: SODIUM CHL 0.9% 50ML MIN-BAG+ 50 ML IVPB ONE (23:58)
[2018-09-27] MEDS ORDERED: PROMETHAZINE HCL 25 MG TAB PO ONE
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
[2018-09-27] MEDS ORDERED: AZITHROMYCIN IV 500 MG VIAL IVPB ONE ×2 (01:33→19:40)
[2018-09-27] MEDS ORDERED: SODIUM CHLORIDE 0.9% 250ML 250 ML ONE ×3 (01:33→19:39)
[2018-09-27] MEDS ORDERED: ONDANSETRON INJ 4 MG/2 ML VIAL IV PRN (03:11)
[2018-09-27] MEDS ORDERED: ALBUTEROL SULFATE 2.5 MG/3 ML VIAL NEB PRN (03:11)
[2018-09-27] MEDS: IV SET AND CAP CHANGE INJ INJ SCH (03:55)
[2018-09-27] MEDS ORDERED: ONDANSETRON INJ 4 MG/2 ML VIAL ONE (03:55)
[2018-09-27] MEDS ORDERED: PROMETHAZINE HCL INJ 25 MG/ML VIAL ONE ×3 (04:36→23:57)
[2018-09-27] MEDS ORDERED: SODIUM CHL 0.9% 100ML MINI-BAG 0 ML IVPB ONE (04:36)
[2018-09-27] MEDS ORDERED: SODIUM CHLORIDE 0.9% 50ML 50 ML ONE ×3 (04:37→23:57)
[2018-09-27] MEDS: PROMETHAZINE HCL INJ 12.5 MG in SODIUM CHLORIDE 0.9% 50ML 50 ML IVPB PRN ×2 (04:51→09:18)
[2018-09-27] MEDS: PANTOPRAZOLE SODIUM IV 40 MG VIAL IV SCH (06:11)
[2018-09-27] MEDS: methylPREDNISolone SODIUM SUC 125 MG/2 ML VIAL IV SCH ×3 (06:11→18:25)
--- NOTE | 2018-09-27 07:06 | RAD ---
EXAM DESCRIPTION: Chest,2 Views CLINICAL HISTORY:57 years Female, Pneumonia Comparison: September 26, 2018 FINDINGS: Minimal retrocardiac opacities No pleural effusion. No pneumothorax. Cardiac and mediastinal silhouette is unremarkable. No acute osseous abnormality. Soft tissues are unremarkable. IMPRESSION: Minimal retrocardiac opacities representing atelectasis or pneumonia. Electronically signed by: Thong Birch MD 09/27/2018 7:03 AM CDT
[2018-09-27] MEDS ORDERED: KCL 20MEQ/WATER FOR INJ 100ML 100 ML IVPB ONE (07:19)
[2018-09-27] MEDS ORDERED: POTASSIUM CHLORIDE 20 MEQ TAB PO ONE (08:00)
[2018-09-27] MEDS ORDERED: KCL 20MEQ/WATER FOR INJ 100ML 20 MEQ in PREMIX BAG 1 BAG IVPB ONE (08:00)
[2018-09-27] MEDS: IPRATROPIUM/ALBUTEROL 3 ML VIAL NEB SCH ×4 (08:30→20:05)
[2018-09-27] MEDS ORDERED: ENOXAPARIN SODIUM 40 MG/0.4 ML SYG SUBCU SCH (09:00)
[2018-09-27] MEDS: SODIUM CHLORIDE 0.9% (FLUSH) 10 ML SYG IV SCH ×2 (09:27→20:42)
[2018-09-27] MEDS ORDERED: predniSONE 20 MG TAB PO ONE (10:30)
[2018-09-27] MEDS ORDERED: FLUoxetine HCL 20 MG CAP PO ONE (10:30)
[2018-09-27] MEDS ORDERED: CARVEDILOL 3.125 MG TAB PO ONE (10:30)
[2018-09-27] MEDS ORDERED: APIXABAN 2.5 MG TAB PO ONE (10:30)
[2018-09-27] MEDS ORDERED: SUCRALFATE 1 GM TAB PO ONE (11:30)
[2018-09-27] MEDS: ACETAMINOPHEN 325 MG TAB PO PRN (11:52)
[2018-09-27] MEDS: ALPRAZolam 0.5 MG TAB PO PRN ×2 (11:53→20:42)
[2018-09-27] MEDS ORDERED: CYCLOBENZAPRINE HCL 5 MG TAB PO PRN (14:50)
[2018-09-27] MEDS ORDERED: BISACODYL SUPPOSITORY 10 MG PR ONE (15:23)
[2018-09-27] MEDS ORDERED: SODIUM CHL 0.9% 50ML MIN-BAG+ 50 ML IVPB ONE (16:56)
[2018-09-27] MEDS ORDERED: cefTRIAXone SODIUM 1 GM VIAL ONE (16:57)
[2018-09-27] MEDS: FERROUS GLUCONATE 325 MG TAB PO SCH (17:01)
[2018-09-27] MEDS: SUCRALFATE 1 GM TAB PO SCH (17:01)
[2018-09-27] MEDS: DICYCLOMINE HCL 20 MG TAB PO SCH ×2 (17:01→20:43)
[2018-09-27] MEDS: OXYCODONE PO PRN (17:07)
[2018-09-27] MEDS: ACETAMINOPHEN PO PRN (17:07)
[2018-09-27] MEDS: [UNRECOGNIZED DRUG - OTHER] PO PRN (17:07)
[2018-09-27] MEDS: cefTRIAXone SODIUM 1 GM in SODIUM CHL 0.9% 50ML MIN-BAG+ 50 ML IVPB SCH (18:25)
[2018-09-27] MEDS ORDERED: LEVOTHYROXINE SODIUM 0.112 MG TAB ONE (19:40)
[2018-09-27] MEDS: AZITHROMYCIN IV 500 MG in SODIUM CHLORIDE 0.9% 250ML 250 ML IVPB SCH (20:43)
[2018-09-27] MEDS: APIXABAN 2.5 MG TAB PO SCH (20:43)
[2018-09-27] MEDS: CARVEDILOL 12.5 MG TAB PO SCH (20:43)
[2018-09-27] MEDS: ATORVASTATIN 20 MG TAB PO SCH (20:43)
[2018-09-27] MEDS: FLUTICASONE/SALMETEROL 250/50 14 PUFF/17 GM INH INH SCH (22:00)
[2018-09-28] MEDS: methylPREDNISolone SODIUM SUC 125 MG/2 ML VIAL IV SCH ×4 (00:02→17:12)
[2018-09-28] MEDS: PROMETHAZINE HCL INJ 12.5 MG in SODIUM CHLORIDE 0.9% 50ML 50 ML IVPB PRN ×4 (00:03→21:30)
[2018-09-28] MEDS ORDERED: SODIUM CHLORIDE 0.9% 50ML 50 ML ONE ×3 (05:33→20:48)
[2018-09-28] MEDS ORDERED: PROMETHAZINE HCL INJ 25 MG/ML VIAL ONE ×3 (05:33→20:48)
[2018-09-28] MEDS: LEVOTHYROXINE SODIUM 0.112 MG TAB PO SCH (06:21)
[2018-09-28] MEDS: PANTOPRAZOLE SODIUM IV 40 MG VIAL IV SCH (06:21)
[2018-09-28] MEDS: SUCRALFATE 1 GM TAB PO SCH ×3 (06:21→16:50)
[2018-09-28] MEDS ORDERED: FLUoxetine HCL 20 MG CAP ONE (06:57)
[2018-09-28] MEDS: FERROUS GLUCONATE 325 MG TAB PO SCH ×2 (07:38→17:13)
[2018-09-28] MEDS: CARVEDILOL 12.5 MG TAB PO SCH ×2 (08:11→21:28)
[2018-09-28] MEDS: DICYCLOMINE HCL 20 MG TAB PO SCH ×4 (08:11→21:28)
[2018-09-28] MEDS: APIXABAN 2.5 MG TAB PO SCH ×2 (08:11→21:28)
[2018-09-28] MEDS: FLUoxetine HCL 20 MG CAP PO SCH (08:11)
[2018-09-28] MEDS: SODIUM CHLORIDE 0.9% (FLUSH) 10 ML SYG IV SCH ×2 (08:12→21:29)
[2018-09-28] MEDS: ALPRAZolam 0.5 MG TAB PO PRN ×2 (08:15→15:27)
[2018-09-28] MEDS: FLUTICASONE/SALMETEROL 250/50 14 PUFF/17 GM INH INH SCH ×2 (08:21→19:57)
[2018-09-28] MEDS: IPRATROPIUM/ALBUTEROL 3 ML VIAL NEB SCH ×4 (08:21→19:57)
[2018-09-28] MEDS: ACETAMINOPHEN 325 MG TAB PO PRN (11:49)
[2018-09-28] MEDS ORDERED: guaiFENesin/DEXTROMETH SYRUP 5 ML UD PO PRN (13:21)
[2018-09-28] MEDS: BENZONATATE PERLES 100 MG CAP PO SCH ×2 (15:16→21:30)
[2018-09-28] MEDS ORDERED: SODIUM CHL 0.9% 50ML MIN-BAG+ 50 ML IVPB ONE (16:39)
[2018-09-28] MEDS ORDERED: cefTRIAXone SODIUM 1 GM VIAL ONE (16:40)
[2018-09-28] MEDS ORDERED: VANCOMYCIN PER PHARMACY INJ SCH (17:00)
[2018-09-28] MEDS: cefTRIAXone SODIUM 1 GM in SODIUM CHL 0.9% 50ML MIN-BAG+ 50 ML IVPB SCH (17:13)
[2018-09-28] MEDS ORDERED: VANCOMYCIN HCL INJ 500 MG VIAL ONE (17:45)
[2018-09-28] MEDS ORDERED: SODIUM CHLORIDE 0.9% 250ML 250 ML ONE ×2 (17:45→20:47)
[2018-09-28] MEDS ORDERED: VANCOMYCIN HCL INJ 1,000 MG VIAL IVPB ONE (17:46)
[2018-09-28] MEDS: VANCOMYCIN HCL INJ 1,000 MG, VANCOMYCIN HCL INJ 500 MG in SODIUM CHLORIDE 0.9% 250ML 25... IVPB SCH (17:55)
[2018-09-28] MEDS ORDERED: AZITHROMYCIN IV 500 MG VIAL IVPB ONE (20:47)
[2018-09-28] MEDS: ATORVASTATIN 20 MG TAB PO SCH (21:28)
--- NOTE | 2018-09-28 21:46 | PN ---
DATE: 09/28/18 SUPERVISING PHYSICIAN: Stewart Corrales M.D. SUBJECTIVE: The patient notes that she continues to have a significant amount of coughing, but she has not produced any significant amount of sputum. She did have a blood culture come up positive today with gram positive cocci in one blood culture and I have started her on vancomycin and continued Rocephin and azithromycin. At this point she has been afebrile since admission. OBJECTIVE: VITAL SIGNS: Temperature 99.0, pulse 80, blood pressure 146/82, respirations 18, satting 95% on nasal cannula on 2 liters at rest. Weight 78.6 kg. CHEST: Lung sounds are diminished throughout with continued scattered expiratory and inspiratory wheezing. There is no evidence of acute respiratory distress. HEART: Regular rate and rhythm. ABDOMEN: Soft, non-tender. Positive bowel sounds. EXTREMITIES: Without any edema. NEUROLOGIC: She is alert and oriented times three. LABORATORY: White count normalized this day at 9,600, hemoglobin 11.8 and 35.3 hematocrit. Today, her chemistries show normal electrolytes with potassium 3.6, BUN 18, creatinine 0.67. Magnesium 2.2. Urinalysis was still pending. Sputum culture pending. Blood culture shows a gram positive cocci in the aerobic bottle with the other bottles still being negative. RADIOLOGY: No additional radiographic studies today. Chest x-ray yesterday did show retrocardiac opacities, probably pneumonia. ASSESSMENT: 1. Sepsis with gram positive bacteremia secondary to left lower lobe pneumonia, most likely community acquired with an admitting heart rate greater than 100, respiratory rate of 24 and a WBC of 11,500. 2. Acute exacerbation of chronic obstructive pulmonary disease/asthma secondary to #1. 3. Hypokalemia, resolved with IV fluids. 4. Coronary artery disease with cardiac stents. 5. Gastroesophageal reflux disease. 6. Depression and anxiety. PLAN: I have started her on vancomycin for the gram positive cocci awaiting that culture results to further target antibiotic therapy. She will also remain on Rocephin and azithromycin. Given that she continues to wheeze will still provide her with some Solu-Medrol IV in anticipation of hopefully being able to switch her to p.o. prednisone either tomorrow or the next. Will need to continue with current antibiotic coverage until we get cultures back on the blood cultures and then target antibiotic therapy as appropriate. Will plan to follow her labs as necessary per vancomycin protocol, but at this point her CBC and her electrolytes are showing to be stable. We will also check an x-ray in the morning to ensure that we are continuing to show good improvement. Until she can transition back to outpatient management will continue to monitor and treat as needed. #[id number] [facility]
[2018-09-28] MEDS: AZITHROMYCIN IV 500 MG in SODIUM CHLORIDE 0.9% 250ML 250 ML IVPB SCH (22:04)
[2018-09-29] MEDS: ALPRAZolam 0.5 MG TAB PO PRN ×3 (00:01→20:51)
[2018-09-29] MEDS: methylPREDNISolone SODIUM SUC 125 MG/2 ML VIAL IV SCH ×5 (00:21→18:55)
[2018-09-29] MEDS ORDERED: SODIUM CHLORIDE 0.9% 250ML 250 ML ONE ×3 (05:31→20:32)
[2018-09-29] MEDS ORDERED: VANCOMYCIN HCL INJ 500 MG VIAL ONE ×2 (05:31→17:14)
[2018-09-29] MEDS ORDERED: VANCOMYCIN HCL INJ 1,000 MG VIAL IVPB ONE ×2 (05:32→17:15)
[2018-09-29] MEDS: ACETAMINOPHEN PO PRN (05:49)
[2018-09-29] MEDS: OXYCODONE PO PRN (05:49)
[2018-09-29] MEDS: [UNRECOGNIZED DRUG - OTHER] PO PRN (05:49)
[2018-09-29] MEDS: VANCOMYCIN HCL INJ 1,000 MG, VANCOMYCIN HCL INJ 500 MG in SODIUM CHLORIDE 0.9% 250ML 25... IVPB SCH ×2 (05:58→18:10)
[2018-09-29] MEDS: PANTOPRAZOLE SODIUM IV 40 MG VIAL IV SCH (06:10)
[2018-09-29] MEDS: SODIUM CHLORIDE 0.9% (FLUSH) 10 ML SYG IV PRN (06:10)
[2018-09-29] MEDS: LEVOTHYROXINE SODIUM 0.112 MG TAB PO SCH (06:24)
[2018-09-29] MEDS: SUCRALFATE 1 GM TAB PO SCH ×3 (06:40→17:24)
[2018-09-29] MEDS: FERROUS GLUCONATE 325 MG TAB PO SCH ×2 (07:45→17:26)
[2018-09-29] MEDS ORDERED: PROMETHAZINE HCL 25 MG TAB ONE (08:15)
[2018-09-29] MEDS: IPRATROPIUM/ALBUTEROL 3 ML VIAL NEB SCH ×4 (08:17→20:45)
[2018-09-29] MEDS: FLUTICASONE/SALMETEROL 250/50 14 PUFF/17 GM INH INH SCH ×2 (08:17→20:45)
[2018-09-29] MEDS: PROMETHAZINE HCL 25 MG TAB PO PRN ×2 (08:20→12:12)
[2018-09-29] MEDS: CARVEDILOL 12.5 MG TAB PO SCH ×2 (09:46→20:46)
[2018-09-29] MEDS: SODIUM CHLORIDE 0.9% (FLUSH) 10 ML SYG IV SCH ×2 (09:46→20:46)
[2018-09-29] MEDS: FLUoxetine HCL 20 MG CAP PO SCH (09:46)
[2018-09-29] MEDS: APIXABAN 2.5 MG TAB PO SCH ×2 (09:46→20:46)
[2018-09-29] MEDS: BENZONATATE PERLES 100 MG CAP PO SCH ×3 (09:46→20:46)
[2018-09-29] MEDS: DICYCLOMINE HCL 20 MG TAB PO SCH ×4 (09:46→20:46)
[2018-09-29] MEDS: guaiFENesin ER TAB 600 MG TAB PO SCH ×2 (13:46→20:46)
[2018-09-29] MEDS: BUDESONIDE NEBS 0.5 MG/2 ML INH NEB SCH ×2 (14:23→20:45)
[2018-09-29] MEDS ORDERED: SODIUM CHLORIDE 0.9% 50ML 50 ML ONE (17:15)
[2018-09-29] MEDS ORDERED: PROMETHAZINE HCL INJ 25 MG/ML VIAL ONE (17:15)
[2018-09-29] MEDS ORDERED: cefTRIAXone SODIUM 1 GM VIAL ONE (17:16)
[2018-09-29] MEDS ORDERED: SODIUM CHL 0.9% 50ML MIN-BAG+ 50 ML IVPB ONE (17:16)
[2018-09-29] MEDS: cefTRIAXone SODIUM 1 GM in SODIUM CHL 0.9% 50ML MIN-BAG+ 50 ML IVPB SCH (17:30)
[2018-09-29] MEDS ORDERED: AZITHROMYCIN IV 500 MG VIAL IVPB ONE (20:33)
[2018-09-29] MEDS: ATORVASTATIN 20 MG TAB PO SCH (20:46)
--- NOTE | 2018-09-29 21:09 | PN ---
DATE: 09/29/18 SUPERVISING PHYSICIAN: Stewart Corrales M.D. SUBJECTIVE: The patient is still having some nausea. She is requesting IV Phenergan. She is also having a cough but she says she cannot tolerate Robitussin and that she has an allergy to codeine. I discussed at length with her there are not any options left other than Tessalon Perles. She has not had any chest pains or abdominal pains. The patient did have a positive blood culture with gram positive cocci yesterday and we started her on vancomycin in addition to the Rocephin and azithromycin that she has been tolerating without any complications. OBJECTIVE: VITAL SIGNS: Temperature 98.8, pulse 71, blood pressure 147/80, respirations 16, satting 96% on room air. GENERAL: The patient is resting comfortably. Appears to be in no acute distress. CHEST: Lung sounds continue to be notably decreased throughout with some inspiratory and expiratory wheezing continued. No rhonchi or rales. HEART: Regular rate and rhythm. ABDOMEN: Soft, non-tender. Positive bowel sounds. EXTREMITIES: Without any edema. NEUROLOGIC: She is alert and oriented times three. LABORATORY: Chemistry profile and her CBC were fairly normal yesterday, so no repeat labs today. No repeat chest x-ray. ASSESSMENT: 1. Sepsis with gram positive bacteremia secondary to left lower lobe pneumonia, most likely community acquired with an admitting heart rate greater than 100, respiratory rate of 24 and a WBC of 11,500. Patient now on vancomycin, Rocephin and azithromycin. 2. Acute exacerbation of chronic obstructive pulmonary disease/asthma secondary to #1. 3. Hypokalemia, resolved with IV fluids. 4. Coronary artery disease with cardiac stents. 5. Gastroesophageal reflux disease. 6. Depression and anxiety. PLAN: Will continue with vancomycin, Rocephin and azithromycin, waiting for further results on culture and sensitivity to further target antibiotic therapy. Given that she continues to have a significant amount of wheezing, I have added Solu-Medrol dosing and increased it to 80 every 6 hours as well as added Pulmicort. Will change her Phenergan to IV for nausea and again try some Tessalon Perles for cough. At this point I have discussed that there were not any other options. Hopefully the increased steroids will decrease in the secretions. Will follow her electrolytes tomorrow and repeat a chest x-ray. Until she can transition back to outpatient management and we have final results on the positive blood culture to target antibiotic, will continue to monitor and treat the patient as needed. #[id number] [facility]
[2018-09-29] MEDS: AZITHROMYCIN IV 500 MG in SODIUM CHLORIDE 0.9% 250ML 250 ML IVPB SCH (21:20)
[2018-09-30] MEDS: methylPREDNISolone SODIUM SUC 125 MG/2 ML VIAL IV SCH ×4 (00:14→18:42)
[2018-09-30] MEDS ORDERED: SODIUM CHLORIDE 0.9% 50ML 50 ML ONE ×4 (00:22→23:57)
[2018-09-30] MEDS ORDERED: PROMETHAZINE HCL INJ 25 MG/ML VIAL ONE ×3 (00:22→23:57)
[2018-09-30] MEDS ORDERED: VANCOMYCIN HCL INJ 1,000 MG VIAL IVPB ONE ×3 (00:26→19:35)
[2018-09-30] MEDS ORDERED: SODIUM CHLORIDE 0.9% 250ML 250 ML ONE ×4 (00:26→19:36)
[2018-09-30] MEDS ORDERED: VANCOMYCIN HCL INJ 500 MG VIAL ONE ×3 (00:26→19:34)
[2018-09-30] MEDS: PROMETHAZINE HCL INJ 12.5 MG in SODIUM CHLORIDE 0.9% 50ML 50 ML IVPB PRN ×4 (00:36→12:04)
[2018-09-30] MEDS: ACETAMINOPHEN 325 MG TAB PO PRN (00:37)
[2018-09-30] MEDS: IV SET AND CAP CHANGE INJ INJ SCH (05:16)
[2018-09-30] MEDS: SODIUM CHLORIDE 0.9% (FLUSH) 10 ML SYG IV PRN (05:32)
[2018-09-30] MEDS: PANTOPRAZOLE SODIUM IV 40 MG VIAL IV SCH (06:15)
[2018-09-30] MEDS: LEVOTHYROXINE SODIUM 0.112 MG TAB PO SCH (06:15)
[2018-09-30] MEDS: VANCOMYCIN HCL INJ 1,000 MG, VANCOMYCIN HCL INJ 500 MG in SODIUM CHLORIDE 0.9% 250ML 25... IVPB SCH ×2 (06:17→18:43)
[2018-09-30] MEDS: ALPRAZolam 0.5 MG TAB PO PRN ×2 (06:29→15:18)
[2018-09-30] MEDS: SUCRALFATE 1 GM TAB PO SCH ×3 (06:52→16:55)
[2018-09-30] MEDS: FERROUS GLUCONATE 325 MG TAB PO SCH ×2 (08:21→17:56)
[2018-09-30] MEDS: FLUTICASONE/SALMETEROL 250/50 14 PUFF/17 GM INH INH SCH ×2 (08:47→20:14)
[2018-09-30] MEDS: DICYCLOMINE HCL 20 MG TAB PO SCH ×4 (08:47→20:55)
[2018-09-30] MEDS: APIXABAN 2.5 MG TAB PO SCH ×2 (08:47→20:55)
[2018-09-30] MEDS: BUDESONIDE NEBS 0.5 MG/2 ML INH NEB SCH ×2 (08:47→20:14)
[2018-09-30] MEDS: FLUoxetine HCL 20 MG CAP PO SCH (08:47)
[2018-09-30] MEDS: CARVEDILOL 12.5 MG TAB PO SCH ×2 (08:47→20:55)
[2018-09-30] MEDS: IPRATROPIUM/ALBUTEROL 3 ML VIAL NEB SCH ×4 (08:47→20:14)
[2018-09-30] MEDS: BENZONATATE PERLES 100 MG CAP PO SCH ×3 (08:47→20:55)
[2018-09-30] MEDS: guaiFENesin ER TAB 600 MG TAB PO SCH ×2 (08:48→20:55)
[2018-09-30] MEDS: SODIUM CHLORIDE 0.9% (FLUSH) 10 ML SYG IV SCH ×2 (08:48→20:54)
[2018-09-30] MEDS: BIFIDOBACTERIUM INFANTIS 4 MG CAP PO SCH (13:31)
--- NOTE | 2018-09-30 17:04 | RAD ---
EXAM DESCRIPTION: Chest,2 Views CLINICAL HISTORY: 57 years Female hemoptyisi COMPARISON: September 27, 2018. TECHNIQUE: Two view study of the chest was performed. FINDINGS: Decreased inspiration with cardiac enlargement. Central vessels are moderately increased. Airspace opacities lower lungs bilaterally left greater than right somewhat increased when correlated with the prior study. Increasing linear components. No effusions bilaterally. No pneumothorax. IMPRESSION: Enlarged heart with moderate central congestion. Increasing infiltrate and atelectatic change lower lungs bilaterally left greater than right. Electronically signed by: Angelica Vicente MD 09/30/2018 5:01 PM CDT
[2018-09-30] MEDS ORDERED: SODIUM CHL 0.9% 50ML MIN-BAG+ 50 ML IVPB ONE (17:42)
[2018-09-30] MEDS ORDERED: cefTRIAXone SODIUM 1 GM VIAL ONE (17:42)
[2018-09-30] MEDS: cefTRIAXone SODIUM 1 GM in SODIUM CHL 0.9% 50ML MIN-BAG+ 50 ML IVPB SCH (17:56)
[2018-09-30] MEDS ORDERED: AZITHROMYCIN IV 500 MG VIAL IVPB ONE (19:37)
[2018-09-30] MEDS: ATORVASTATIN 20 MG TAB PO SCH (20:55)
[2018-09-30] MEDS: AZITHROMYCIN IV 500 MG in SODIUM CHLORIDE 0.9% 250ML 250 ML IVPB SCH (20:57)
[2018-10-01] MEDS: methylPREDNISolone SODIUM SUC 125 MG/2 ML VIAL IV SCH ×2 (00:01→05:36)
[2018-10-01] MEDS: PROMETHAZINE HCL INJ 25 MG in SODIUM CHLORIDE 0.9% 50ML 50 ML IVPB PRN ×2 (00:02→21:06)
[2018-10-01] MEDS: [UNRECOGNIZED DRUG - OTHER] PO PRN (00:02)
[2018-10-01] MEDS: ACETAMINOPHEN PO PRN (00:02)
[2018-10-01] MEDS: OXYCODONE PO PRN (00:02)
[2018-10-01] MEDS: ALPRAZolam 0.5 MG TAB PO PRN ×3 (04:22→18:50)
[2018-10-01] MEDS: VANCOMYCIN HCL INJ 1,000 MG, VANCOMYCIN HCL INJ 500 MG in SODIUM CHLORIDE 0.9% 250ML 25... IVPB SCH ×2 (05:36→17:27)
[2018-10-01] MEDS: PANTOPRAZOLE SODIUM IV 40 MG VIAL IV SCH (06:09)
[2018-10-01] MEDS: SUCRALFATE 1 GM TAB PO SCH ×3 (06:09→16:56)
[2018-10-01] MEDS: LEVOTHYROXINE SODIUM 0.112 MG TAB PO SCH (06:09)
[2018-10-01] MEDS ORDERED: FLUCONAZOLE 150 MG TAB PO ONE (08:00)
[2018-10-01] MEDS: FERROUS GLUCONATE 325 MG TAB PO SCH ×2 (08:26→16:56)
--- NOTE | 2018-10-01 08:55 | PN ---
SUPERVISING PHYSICIAN: Stewart Corrales M.D. DATE: 09/30/18 SUBJECTIVE: The patient notes she is feeling a little bit better today since she started on higher dose of steroids. She has had some hemoptysis with her coughing, but nothing that is majorly concerning or gross in nature. She does have some complaints now of thrush symptoms and apparently was started on some Diflucan as well as swish and swallow. OBJECTIVE: VITAL SIGNS: Temperature 97.6. Pulse 85. Blood pressure 129/89. Respirations 20. Oxygen saturation 98% on room air at rest. Weight 82.9 kg. GENERAL: The patient is sitting in the bed resting comfortably. She appears to be in no acute distress. CHEST: Lung sounds are improved from yesterday with no wheezing both inspiratory and expiratory, but diminished towards the bases bilaterally. HEART: Regular rate and rhythm. ABDOMEN: Soft, nontender. Positive bowel sounds. EXTREMITIES: Without any edema. NEUROLOGIC: She is alert and oriented times three. LABORATORY: Hemoglobin 11.8, hematocrit 34.9. Chemistry, as I said yesterday, was stable with BUN 18, creatinine 0.6. MICROBIOLOGY: All but one blood culture have been negative. One positive for gram positive cocci coagulase-negative staph, awaiting further final culture and sensitivity. RADIOLOGY: Chest x-ray, two-view, per radiologic interpretation showed enlarged heart with moderate central congestion, increasing infiltrate and atelectasis change in lower lungs bilaterally with left greater than right. ASSESSMENT: 1. Sepsis with gram positive bacteremia coagulase-negative staph, awaiting final culture results secondary to left lower lobe pneumonia, community acquired, with the patient presenting with heart rate greater than 100, respiratory rate of 24 and white count of 11,500. The patient now is showing good response on vancomycin, Rocephin, azithromycin and increased Solu-Medrol, now with some mild hemoptysis, likely secondary to complications from her Eliquis and coughing. 2. Acute exacerbation of chronic obstructive pulmonary disease/asthma secondary to #1, persistent to treatment, requiring increase in Solu-Medrol dosing. 3. Hypokalemia, resolved with IV fluids. 4. Coronary artery disease with cardiac stents. 5. Gastroesophageal reflux disease. 6. Depression and anxiety. PLAN: Will continue current antibiotic therapy with vancomycin, Rocephin and azithromycin, awaiting further culture results to further target antibiotic therapy based on positive blood culture results. She has been doing well on Solu-Medrol dose increased to 80 mg q.6h. We will continue with this for another 24 hours as well as Pulmicort. She is also doing well with Phenergan IV for nausea and notes that Tessalon Perles seem to be working for her cough. Hopefully we will be able to taper her steroid dosing in the next 24 hours. Until then, we will repeat BMP in the morning. We will hold off on chest x-ray. Until she can transition back to outpatient management, we will continue to monitor and treat the patient as needed. #[id number] [facility]
[2018-10-01] MEDS: DICYCLOMINE HCL 20 MG TAB PO SCH ×4 (08:58→20:42)
[2018-10-01] MEDS: BIFIDOBACTERIUM INFANTIS 4 MG CAP PO SCH (08:58)
[2018-10-01] MEDS: SODIUM CHLORIDE 0.9% (FLUSH) 10 ML SYG IV SCH ×2 (08:58→20:42)
[2018-10-01] MEDS: guaiFENesin ER TAB 600 MG TAB PO SCH ×2 (08:58→21:06)
[2018-10-01] MEDS: FLUoxetine HCL 20 MG CAP PO SCH (08:58)
[2018-10-01] MEDS: BENZONATATE PERLES 100 MG CAP PO SCH ×3 (08:58→20:43)
[2018-10-01] MEDS: CARVEDILOL 12.5 MG TAB PO SCH ×2 (08:58→20:42)
[2018-10-01] MEDS: APIXABAN 2.5 MG TAB PO SCH ×2 (08:58→20:42)
[2018-10-01] MEDS ORDERED: NYSTATIN SUSPENSION 500,000/5 ML UD MT SCH (09:00)
[2018-10-01] MEDS: FLUTICASONE/SALMETEROL 250/50 14 PUFF/17 GM INH INH SCH ×2 (09:20→20:36)
[2018-10-01] MEDS: BUDESONIDE NEBS 0.5 MG/2 ML INH NEB SCH ×2 (09:20→20:36)
[2018-10-01] MEDS: IPRATROPIUM/ALBUTEROL 3 ML VIAL NEB SCH ×4 (09:20→20:36)
[2018-10-01] MEDS ORDERED: PROMETHAZINE HCL INJ 25 MG/ML VIAL ONE ×2 (10:10→20:57)
[2018-10-01] MEDS ORDERED: SODIUM CHLORIDE 0.9% 50ML 50 ML ONE ×2 (10:10→20:57)
[2018-10-01] MEDS: NYSTATIN SUSPENSION 500,000/5 ML UD MT SCH ×4 (10:26→20:42)
[2018-10-01] MEDS ORDERED: methylPREDNISolone SODIUM SUC 125 MG/2 ML VIAL IV ONE (12:00)
[2018-10-01] MEDS ORDERED: cefTRIAXone SODIUM 1 GM VIAL ONE (12:44)
[2018-10-01] MEDS ORDERED: SODIUM CHL 0.9% 50ML MIN-BAG+ 50 ML IVPB ONE (12:44)
[2018-10-01] MEDS ORDERED: VANCOMYCIN HCL INJ 500 MG VIAL ONE (12:44)
[2018-10-01] MEDS ORDERED: SODIUM CHLORIDE 0.9% 250ML 250 ML ONE ×2 (12:44→20:23)
[2018-10-01] MEDS ORDERED: VANCOMYCIN HCL INJ 1,000 MG VIAL IVPB ONE (12:45)
[2018-10-01] MEDS: ACETAMINOPHEN 325 MG TAB PO PRN (12:49)
--- NOTE | 2018-10-01 14:56 | PN ---
SUPERVISING PHYSICIAN: Stewart Corrales MD DATE: 10/01/18 SUBJECTIVE: The patient is lying in bed. She is asleep. She awakens easily. She has some complaints of coughing and shortness of breath, but it is improved. We discussed her discharge plan with her daughter buying her a plane ticket to go back to [place]. She has arrangements for a ride to go to the airport. OBJECTIVE: VITAL SIGNS: Temperature 98.2. Heart rate 69. Blood pressure 173/76. Respiratory rate 22. O2 saturation 94% on 2 liters nasal cannula. RESPIRATORY: A few scattered expiratory wheezes throughout and diminished at the bases. She is slightly tachypneic at times, but very mild. CARDIAC: Regular rate and rhythm. GASTROINTESTINAL: Abdomen is soft, nondistended, nontender. Bowel sounds are positive. NEUROLOGIC: Awake, alert and oriented times three. LABORATORY: Preliminary blood cultures show no growth at 4 days. All other labs and films have been reviewed via the EMR. ASSESSMENT: 1. Sepsis with gram positive bacteremia coagulase-negative staph, awaiting final culture results secondary to left lower lobe pneumonia, community acquired, with the patient presenting with heart rate greater than 100, respiratory rate of 24 and white count of 11,500. The patient now is showing good response on vancomycin, Rocephin, azithromycin and increased Solu-Medrol, now with some mild hemoptysis, likely secondary to complications from her Eliquis and coughing. 2. Acute exacerbation of chronic obstructive pulmonary disease/asthma secondary to #1, persistent to treatment, requiring increase in Solu-Medrol dosing. 3. Hypokalemia, resolved with IV fluids. 4. Coronary artery disease with cardiac stents. 5. Gastroesophageal reflux disease. 6. Depression and anxiety. PLAN: We will continue present supportive care. Her Solu-Medrol was increased yesterday. I have slowly decreased it today to 60 mg q.6h. Hopefully we can continue to titrate down until we get to oral prednisone. We will hold on lab and x-ray until Friday. Hopefully we get a little better idea of when her plane will fly her to [place]. I have encouraged good pulmonary hygiene. We will continue to monitor the patient closely and follow as needed. #[id number] MTDD
[2018-10-01] MEDS: cefTRIAXone SODIUM 1 GM in SODIUM CHL 0.9% 50ML MIN-BAG+ 50 ML IVPB SCH (18:30)
[2018-10-01] MEDS ORDERED: AZITHROMYCIN IV 500 MG VIAL IVPB ONE (20:23)
[2018-10-01] MEDS: AZITHROMYCIN IV 500 MG in SODIUM CHLORIDE 0.9% 250ML 250 ML IVPB SCH (20:41)
[2018-10-01] MEDS: ATORVASTATIN 20 MG TAB PO SCH (20:42)
[2018-10-02] MEDS: ALPRAZolam 0.5 MG TAB PO PRN ×3 (02:28→21:03)
[2018-10-02] MEDS ORDERED: PROMETHAZINE HCL INJ 25 MG/ML VIAL ONE ×2 (05:00→09:54)
[2018-10-02] MEDS ORDERED: SODIUM CHLORIDE 0.9% 50ML 50 ML ONE ×2 (05:00→09:54)
[2018-10-02] MEDS: PROMETHAZINE HCL INJ 25 MG in SODIUM CHLORIDE 0.9% 50ML 50 ML IVPB PRN ×2 (05:06→10:03)
[2018-10-02] MEDS ORDERED: VANCOMYCIN HCL INJ 500 MG VIAL ONE (05:42)
[2018-10-02] MEDS ORDERED: SODIUM CHLORIDE 0.9% 250ML 0 ML ONE (05:43)
[2018-10-02] MEDS ORDERED: VANCOMYCIN HCL INJ 1,000 MG VIAL IVPB ONE ×3 (05:43→14:16)
[2018-10-02] MEDS: VANCOMYCIN HCL INJ 1,000 MG, VANCOMYCIN HCL INJ 500 MG in SODIUM CHLORIDE 0.9% 250ML 25... IVPB SCH (05:53)
[2018-10-02] MEDS: PANTOPRAZOLE SODIUM IV 40 MG VIAL IV SCH (06:02)
[2018-10-02] MEDS: LEVOTHYROXINE SODIUM 0.112 MG TAB PO SCH (06:03)
[2018-10-02] MEDS: FERROUS GLUCONATE 325 MG TAB PO SCH ×2 (07:24→17:29)
[2018-10-02] MEDS: SUCRALFATE 1 GM TAB PO SCH ×3 (07:24→17:29)
[2018-10-02] MEDS ORDERED: SULFA/TRIMETH 800/160 (DS) TAB 1 EA TAB ONE (07:28)
[2018-10-02] MEDS: DICYCLOMINE HCL 20 MG TAB PO SCH ×4 (09:14→21:52)
[2018-10-02] MEDS: guaiFENesin ER TAB 600 MG TAB PO SCH ×2 (09:14→21:53)
[2018-10-02] MEDS: NYSTATIN SUSPENSION 500,000/5 ML UD MT SCH ×4 (09:15→21:53)
[2018-10-02] MEDS: APIXABAN 2.5 MG TAB PO SCH ×2 (09:15→21:53)
[2018-10-02] MEDS: FLUoxetine HCL 20 MG CAP PO SCH (09:15)
[2018-10-02] MEDS: BENZONATATE PERLES 100 MG CAP PO SCH ×3 (09:15→21:54)
[2018-10-02] MEDS: CARVEDILOL 12.5 MG TAB PO SCH ×2 (09:15→21:52)
[2018-10-02] MEDS: BIFIDOBACTERIUM INFANTIS 4 MG CAP PO SCH (09:15)
[2018-10-02] MEDS: SODIUM CHLORIDE 0.9% (FLUSH) 10 ML SYG IV SCH (09:15)
--- NOTE | 2018-10-02 11:39 | PN ---
SUPERVISING PHYSICIAN: Stewart Corrales MD DATE: 10/02/18 SUBJECTIVE: The patient is lying in bed. She is coughing quite a bit, but says her shortness of breath is improved. She denies chest pain, nausea or vomiting. We discussed her flying back to [place]. Her daughter is in the process of getting her plane ticket on Friday and she has decided not to back to her house. She is going from here to the airport. Her friend will take her. She does have a dog and we discussed the dog getting shots and permission to fly. Hopefully, the dog will get its shots today. OBJECTIVE: VITAL SIGNS: Temperature 98.3. Heart rate 63. Blood pressure 156/81. Respiratory rate 18. O2 saturation 95% on 2 liters nasal cannula. RESPIRATORY: Somewhat diminished throughout. No wheezes or rhonchi note. CARDIAC: Regular rate and rhythm. GASTROINTESTINAL: Abdomen is soft, nondistended, nontender. Bowel sounds are positive. NEUROLOGIC: Awake, alert and oriented times three. LABORATORY: Blood cultures show coagulase negative Staphylococcus in the aerobic culture sensitive to vancomycin. All other labs and films have been reviewed via the EMR. ASSESSMENT: 1. Sepsis with gram positive cocci from the aerobic bottle, presently on vancomycin, which it shows sensitivity to per microbiology. Sepsis is due to left lower lobe pneumonia, community acquired. 2. Acute exacerbation of chronic obstructive pulmonary disease/asthma secondary to #1, persistent to treatment. Her IV Solu-Medrol is being slowly tapered. 3. Hypokalemia, improved. 4. Coronary artery disease with cardiac stents. 5. Gastroesophageal reflux disease. 6. Depression and anxiety. PLAN: We will continue present supportive care. I have titrated down her steroids and given her some cough medicine. I spoke with the patient and her daughter and friend are in the process of getting her a plane ticket to [place] so she can move away from here. Supposedly the plane ticket is for Friday and at that point, we will discharge her from here so she can go straight to the airport. If needed, Eun Mauricio's Department will accompany her to get her things from her home. I have ordered labs and chest x-ray for in the morning. Otherwise, we will continue to monitor the patient closely and follow as needed. #[id number] [facility]
[2018-10-02] MEDS: FLUTICASONE/SALMETEROL 250/50 14 PUFF/17 GM INH INH SCH ×2 (11:56→20:20)
[2018-10-02] MEDS: BUDESONIDE NEBS 0.5 MG/2 ML INH NEB SCH ×2 (11:57→19:52)
[2018-10-02] MEDS: IPRATROPIUM/ALBUTEROL 3 ML VIAL NEB SCH ×4 (11:57→19:52)
[2018-10-02] MEDS ORDERED: methylPREDNISolone SODIUM SUC 40 MG/ML VIAL IV SCH (13:00)
[2018-10-02] MEDS ORDERED: VANCOMYCIN HCL IVPB SCH (14:00)
[2018-10-02] MEDS ORDERED: SODIUM CHLORIDE 0.9% IVPB SCH (14:00)
[2018-10-02] MEDS ORDERED: SODIUM CHLORIDE 0.9% 250ML 250 ML ONE ×2 (14:06→14:16)
[2018-10-02] MEDS ORDERED: predniSONE 20 MG TAB PO ONE (20:54)
[2018-10-02] MEDS: PROMETHAZINE HCL 25 MG TAB PO PRN (21:03)
[2018-10-02] MEDS: ATORVASTATIN 20 MG TAB PO SCH (21:53)
[2018-10-02] MEDS: rifAMPin 300 MG CAP PO SCH (21:54)
[2018-10-02] MEDS: CEFDINIR 300 MG CAP PO SCH (21:54)
[2018-10-02] MEDS: CHLORPHENIRAMINE W/HYDROCODONE 5 ML UD PO PRN (22:26)
[2018-10-03] MEDS: IV SET AND CAP CHANGE INJ INJ SCH (01:58)
[2018-10-03] MEDS: PROMETHAZINE HCL 25 MG TAB PO PRN ×4 (03:50→23:45)
[2018-10-03] MEDS: ACETAMINOPHEN 325 MG TAB PO PRN ×2 (03:50→23:45)
[2018-10-03] MEDS: rifAMPin 300 MG CAP PO SCH ×3 (05:31→21:04)
[2018-10-03] MEDS: LEVOTHYROXINE SODIUM 0.112 MG TAB PO SCH (06:54)
[2018-10-03] MEDS: ALPRAZolam 0.5 MG TAB PO PRN ×3 (06:54→21:10)
[2018-10-03] MEDS: PANTOPRAZOLE SODIUM TAB 40 MG PO SCH (06:56)
--- NOTE | 2018-10-03 07:15 | RAD ---
EXAM: XR Chest, 2 Views CLINICAL HISTORY: The patient is 57 years old and is Female; pna TECHNIQUE: Frontal and lateral views of the chest. COMPARISON: Chest radiograph from 09/30/2018 FINDINGS: LUNGS: Minimal subsegmental atelectasis again noted in the right midlung and within the left lung base. No consolidation visualized. PLEURAL SPACE: Unremarkable. No pneumothorax. HEART: Stable moderate enlargement of the cardiac silhouette. MEDIASTINUM: Unremarkable. BONES/JOINTS: The bones are unchanged. IMPRESSION: Minimal subsegmental atelectasis again noted bilaterally. No significant interval change appreciated. Electronically signed by: Deborah Mendez MD 10/03/2018 7:12 AM CDT
[2018-10-03] MEDS: SUCRALFATE 1 GM TAB PO SCH ×3 (07:46→16:47)
[2018-10-03] MEDS: FERROUS GLUCONATE 325 MG TAB PO SCH ×2 (07:46→16:47)
[2018-10-03] MEDS ORDERED: AZITHROMYCIN 250 MG TAB PO SCH (09:00)
[2018-10-03] MEDS: predniSONE 20 MG TAB PO SCH (09:25)
[2018-10-03] MEDS: BIFIDOBACTERIUM INFANTIS 4 MG CAP PO SCH (09:25)
[2018-10-03] MEDS: BENZONATATE PERLES 100 MG CAP PO SCH ×3 (09:26→21:04)
[2018-10-03] MEDS: NYSTATIN SUSPENSION 500,000/5 ML UD MT SCH ×4 (09:26→21:05)
[2018-10-03] MEDS: CARVEDILOL 12.5 MG TAB PO SCH ×2 (09:26→21:04)
[2018-10-03] MEDS: APIXABAN 2.5 MG TAB PO SCH ×2 (09:26→21:04)
[2018-10-03] MEDS: FLUoxetine HCL 20 MG CAP PO SCH (09:26)
[2018-10-03] MEDS: DICYCLOMINE HCL 20 MG TAB PO SCH ×4 (09:26→21:04)
[2018-10-03] MEDS: CEFDINIR 300 MG CAP PO SCH ×2 (09:27→21:04)
[2018-10-03] MEDS: guaiFENesin ER TAB 600 MG TAB PO SCH ×2 (09:29→21:04)
[2018-10-03] MEDS: IPRATROPIUM/ALBUTEROL 3 ML VIAL NEB SCH ×4 (09:40→20:03)
[2018-10-03] MEDS: FLUTICASONE/SALMETEROL 250/50 14 PUFF/17 GM INH INH SCH ×2 (09:40→20:04)
[2018-10-03] MEDS: BUDESONIDE NEBS 0.5 MG/2 ML INH NEB SCH ×2 (09:40→20:04)
[2018-10-03] MEDS: cefTRIAXone SODIUM 1 GM in SODIUM CHL 0.9% 50ML MIN-BAG+ 50 ML IVPB SCH (10:01)
[2018-10-03] MEDS: CHLORPHENIRAMINE W/HYDROCODONE 5 ML UD PO PRN (14:28)
[2018-10-03] MEDS ORDERED: POTASSIUM CHLORIDE 20 MEQ TAB PO ONE (16:29)
[2018-10-03] MEDS: LISINOPRIL 10 MG TAB PO SCH (18:41)
[2018-10-03] MEDS: ATORVASTATIN 20 MG TAB PO SCH (21:04)
[2018-10-04] MEDS: rifAMPin 300 MG CAP PO SCH ×3 (04:34→20:47)
[2018-10-04] MEDS: LEVOTHYROXINE SODIUM 0.112 MG TAB PO SCH (06:05)
[2018-10-04] MEDS: PANTOPRAZOLE SODIUM TAB 40 MG PO SCH (06:05)
[2018-10-04] MEDS: SUCRALFATE 1 GM TAB PO SCH ×3 (06:05→16:31)
[2018-10-04] MEDS: ACETAMINOPHEN 325 MG TAB PO PRN ×2 (06:46→20:53)
[2018-10-04] MEDS: PROMETHAZINE HCL 25 MG TAB PO PRN ×3 (06:46→16:31)
[2018-10-04] MEDS: FERROUS GLUCONATE 325 MG TAB PO SCH ×2 (07:45→16:31)
[2018-10-04] MEDS: DICYCLOMINE HCL 20 MG TAB PO SCH ×4 (08:30→20:47)
[2018-10-04] MEDS: APIXABAN 2.5 MG TAB PO SCH ×2 (08:30→20:47)
[2018-10-04] MEDS: NYSTATIN SUSPENSION 500,000/5 ML UD MT SCH ×4 (08:30→20:48)
[2018-10-04] MEDS: predniSONE 20 MG TAB PO SCH (08:30)
[2018-10-04] MEDS: CARVEDILOL 12.5 MG TAB PO SCH ×2 (08:30→20:47)
[2018-10-04] MEDS: FLUoxetine HCL 20 MG CAP PO SCH (08:30)
[2018-10-04] MEDS: guaiFENesin ER TAB 600 MG TAB PO SCH ×2 (08:31→20:47)
[2018-10-04] MEDS: CEFDINIR 300 MG CAP PO SCH ×2 (08:31→20:47)
[2018-10-04] MEDS: BIFIDOBACTERIUM INFANTIS 4 MG CAP PO SCH (08:31)
[2018-10-04] MEDS: BENZONATATE PERLES 100 MG CAP PO SCH ×3 (08:31→20:47)
[2018-10-04] MEDS: LISINOPRIL 10 MG TAB PO SCH (08:33)
[2018-10-04] MEDS: IPRATROPIUM/ALBUTEROL 3 ML VIAL NEB SCH ×4 (08:34→20:47)
[2018-10-04] MEDS: BUDESONIDE NEBS 0.5 MG/2 ML INH NEB SCH ×2 (08:34→20:48)
[2018-10-04] MEDS: FLUTICASONE/SALMETEROL 250/50 14 PUFF/17 GM INH INH SCH ×2 (08:59→20:48)
[2018-10-04] MEDS: ALPRAZolam 0.5 MG TAB PO PRN ×2 (09:17→16:31)
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
[2018-10-04] MEDS ORDERED: POTASSIUM CHLORIDE 20 MEQ TAB PO ONE (13:33)
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
[2018-10-04] MEDS ORDERED: BUDESONIDE NEBS 0.5 MG/2 ML INH NEB ONE (19:40)
[2018-10-04] MEDS: ATORVASTATIN 20 MG TAB PO SCH (20:46)
[2018-10-04] MEDS: CHLORPHENIRAMINE W/HYDROCODONE 5 ML UD PO PRN (20:53)
[2018-10-05] MEDS: PROMETHAZINE HCL 25 MG TAB PO PRN ×4 (00:17→20:49)
[2018-10-05] MEDS: ALPRAZolam 0.5 MG TAB PO PRN ×4 (02:36→21:56)
[2018-10-05] MEDS: rifAMPin 300 MG CAP PO SCH ×3 (04:47→20:47)
[2018-10-05] MEDS: SUCRALFATE 1 GM TAB PO SCH ×3 (06:25→16:38)
[2018-10-05] MEDS: PANTOPRAZOLE SODIUM TAB 40 MG PO SCH (06:25)
[2018-10-05] MEDS: LEVOTHYROXINE SODIUM 0.112 MG TAB PO SCH (06:25)
[2018-10-05] MEDS: FERROUS GLUCONATE 325 MG TAB PO SCH ×2 (07:14→16:38)
[2018-10-05] MEDS: IPRATROPIUM/ALBUTEROL 3 ML VIAL NEB SCH ×4 (08:37→20:24)
[2018-10-05] MEDS: BUDESONIDE NEBS 0.5 MG/2 ML INH NEB SCH ×2 (08:38→20:24)
[2018-10-05] MEDS: FLUTICASONE/SALMETEROL 250/50 14 PUFF/17 GM INH INH SCH ×2 (08:43→20:24)
[2018-10-05] MEDS: guaiFENesin ER TAB 600 MG TAB PO SCH ×2 (08:56→20:47)
[2018-10-05] MEDS: CEFDINIR 300 MG CAP PO SCH ×2 (08:56→20:47)
[2018-10-05] MEDS: BENZONATATE PERLES 100 MG CAP PO SCH ×3 (08:56→20:47)
[2018-10-05] MEDS: CARVEDILOL 12.5 MG TAB PO SCH ×2 (08:56→20:47)
[2018-10-05] MEDS: LISINOPRIL 10 MG TAB PO SCH (08:57)
[2018-10-05] MEDS: BIFIDOBACTERIUM INFANTIS 4 MG CAP PO SCH (08:57)
[2018-10-05] MEDS: predniSONE 20 MG TAB PO SCH (08:57)
[2018-10-05] MEDS: APIXABAN 2.5 MG TAB PO SCH ×2 (08:57→20:47)
[2018-10-05] MEDS: DICYCLOMINE HCL 20 MG TAB PO SCH ×4 (08:57→20:47)
[2018-10-05] MEDS: NYSTATIN SUSPENSION 500,000/5 ML UD MT SCH ×4 (08:57→20:47)
[2018-10-05] MEDS: FLUoxetine HCL 20 MG CAP PO SCH (08:57)
[2018-10-05] MEDS: ACETAMINOPHEN 325 MG TAB PO PRN (15:02)
[2018-10-05] MEDS: ATORVASTATIN 20 MG TAB PO SCH (20:47)
[2018-10-05] MEDS: ACETAMINOPHEN PO PRN (20:52)
[2018-10-05] MEDS: [UNRECOGNIZED DRUG - OTHER] PO PRN (20:52)
[2018-10-05] MEDS: OXYCODONE PO PRN (20:52)
--- NOTE | 2018-10-05 22:23 | PN ---
DATE: 10/05/18 SUPERVISING PHYSICIAN: Asa Celestin M.D. SUBJECTIVE: The patient continues to progress well, just awaiting discharge tomorrow. She has had no further complaints. OBJECTIVE: VITAL SIGNS: Remain stable with temperature 97.9, pulse 87, blood pressure 145/85, respirations 20, satting 96% on room air at rest. I's and O's are showing a negative balance of 1275. Weight is 79.3 kg which is down from admission of 81.9 kg. GENERAL: The patient is resting comfortably. Appears to be in no acute distress. She is alert. CHEST: Lung sounds continue with a few scattered rhonchi but no obvious inspiratory or expiratory wheezing. HEART: Regular rate and rhythm. ABDOMEN: Soft, non-tender. Positive bowel sounds. EXTREMITIES: Without edema. NEUROLOGIC: She is alert and oriented times three. LABORATORY: White count shows to be 15,900 but the patient is on prednisone. Hemoglobin and hematocrit are stable at 11.9 and 35.7 respectively with platelet count 249,000. Differential shows to be without a left shift. Chemistries show potassium improving at 3.4, otherwise electrolytes were within normal limits. BUN 18, creatinine 0.49, calcium 8.1. MICROBIOLOGY: Final culture results of the aerobic blood culture bottles shows coagulase negative Staphylococcus aureus that was resistant to clindamycin, erythromycin, oxacillin. Sensitive to Rifampin but resistant to tetracycline, sulfa and sensitive to vancomycin. Culture of sputum shows abundant mixed microbial population continuing to be worked up. All other blood cultures remain negative. RADIOLOGY: No additional radiographic studies today. ASSESSMENT: 1. Sepsis secondary to coagulase negative Staphylococcus aureus. Patient on vancomycin showing good response to treatment with the patient also having a notable left lower lobe pneumonia, community acquired. 2. Acute exacerbation of chronic obstructive pulmonary disease/asthma secondary to #1 with now the patient on oral prednisone. 3. Hypokalemia, improved. 4. Coronary artery disease with cardiac stents. 5. Gastroesophageal reflux disease. 6. Depression and anxiety. PLAN: The patient was planned to be discharged tomorrow. She has already been continued on oral therapy with Rifampin. She is doing well with current treatment. Once discharged she will need to followup with her ux design manager and primary care provider in [place] to have an echocardiogram done. She will need a final course of medications at least to cover for the bacteremia at least 14 days, or at least longer until she can have an echocardiogram completed. Until we can transition her to outpatient management will continue to monitor and treat as needed. #[id number] [facility]
[2018-10-05] MEDS: CHLORPHENIRAMINE W/HYDROCODONE 5 ML UD PO PRN (22:28)
[2018-10-06] MEDS: IV SET AND CAP CHANGE INJ INJ SCH (04:31)
[2018-10-06] MEDS: rifAMPin 300 MG CAP PO SCH (04:47)
[2018-10-06] MEDS: LEVOTHYROXINE SODIUM 0.112 MG TAB PO SCH (06:17)
[2018-10-06] MEDS: SUCRALFATE 1 GM TAB PO SCH (06:17)
[2018-10-06] MEDS: PANTOPRAZOLE SODIUM TAB 40 MG PO SCH (06:17)
[2018-10-06] MEDS: PROMETHAZINE HCL 25 MG TAB PO PRN (08:04)
[2018-10-06] MEDS: NYSTATIN SUSPENSION 500,000/5 ML UD MT SCH (08:04)
[2018-10-06] MEDS: ALPRAZolam 0.5 MG TAB PO PRN (08:04)
[2018-10-06] MEDS: BIFIDOBACTERIUM INFANTIS 4 MG CAP PO SCH (08:09)
[2018-10-06] MEDS: APIXABAN 2.5 MG TAB PO SCH (08:09)
[2018-10-06] MEDS: FLUoxetine HCL 20 MG CAP PO SCH (08:09)
[2018-10-06] MEDS: DICYCLOMINE HCL 20 MG TAB PO SCH (08:09)
[2018-10-06] MEDS: FERROUS GLUCONATE 325 MG TAB PO SCH (08:09)
[2018-10-06] MEDS: CARVEDILOL 12.5 MG TAB PO SCH (08:09)
[2018-10-06] MEDS: BENZONATATE PERLES 100 MG CAP PO SCH (08:09)
[2018-10-06] MEDS: LISINOPRIL 10 MG TAB PO SCH (08:09)
[2018-10-06] MEDS: FLUTICASONE/SALMETEROL 250/50 14 PUFF/17 GM INH INH SCH (08:17)
[2018-10-06] MEDS: IPRATROPIUM/ALBUTEROL 3 ML VIAL NEB SCH (08:17)
[2018-10-06] MEDS: BUDESONIDE NEBS 0.5 MG/2 ML INH NEB SCH (08:18)
[2018-10-06] MEDS: CEFDINIR 300 MG CAP PO SCH (10:31)
[2018-10-06] MEDS: predniSONE 20 MG TAB PO SCH (10:31)
[2018-10-06] MEDS: guaiFENesin ER TAB 600 MG TAB PO SCH (10:31)
[2018-10-06 10:41] VITALS: BP 133/77; TEMP 99.1; O2SAT 98
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
== END 2018-10-06 11:45 | disposition home or self-care (01) | DRG 871 ==
LOC: ER 19:04 → UNDOADMOB 09-27 00:14 → INTOOBSV 09-27 00:14 → OBSVTOIN 09-27 00:14 → MS 09-27 00:14 → OBSVTOIN 09-29 18:45
PROVIDERS: ADMIT Nurse Practitioner Acute Care; ATTEND Nurse Practitioner Family
DX: A41.01 Sepsis due to Methicillin susceptible Staphylococcus aureus (principal); J15.211 Pneumonia due to Methicillin susceptible Staphylococcus aureus; J44.1 Chronic obstructive pulmonary disease with (acute) exacerbation; R04.2 Hemoptysis; E87.6 Hypokalemia; I25.10 Atherosclerotic heart disease of native coronary artery without angina pectoris; K21.9 Gastro-esophageal reflux disease without esophagitis; F32.9 Major depressive disorder, single episode, unspecified; F41.9 Anxiety disorder, unspecified; I48.91 Unspecified atrial fibrillation; E03.9 Hypothyroidism, unspecified; D64.9 Anemia, unspecified; Z95.5 Presence of coronary angioplasty implant and graft; Z86.73 Personal history of transient ischemic attack (TIA), and cerebral infarction without residual deficits; Z79.02 Long term (current) use of antithrombotics/antiplatelets; Z79.51 Long term (current) use of inhaled steroids; Z79.52 Long term (current) use of systemic steroids; Z88.6 Allergy status to analgesic agent; Z88.5 Allergy status to narcotic agent; Z88.8 Allergy status to other drugs, medicaments and biological substances; Z79.891 Long term (current) use of opiate analgesic; Z79.899 Other long term (current) drug therapy